=== PATIENT | female | born 1960 | race Caucasian/White ===

== ENCOUNTER → 2018-03-22 11:25 | Outpatient (CLI) | payer BC, SELFPAY ==
--- NOTE | 2018-03-22 11:50 | RAD_ITS ---
STUDY: X-RAY CHEST REASON FOR EXAM: Female, 57 years old. Left-sided chest pain. TECHNIQUE: Frontal and lateral views of the chest. COMPARISON: 11/03/2017. FINDINGS: The lungs are clear and expanded. There is no demonstrated pleural abnormality. Normal size heart. Normal mediastinum and johnny. Normal visualized pulmonary arteries. Normal visualized aortic arch and descending thoracic aorta. Normal visualized thoracic spine. Normal visualized ribs, clavicles, and shoulders. There is no demonstrated abnormality of the visualized soft tissue structures of the upper abdomen. RAD/Chest PA and Lateral IMPRESSION: Normal x-ray examination of the chest. Electronically Signed: Mohsen Fong MD at 16:47 EDT , Service support ,
[2018-03-22 14:04] LABS: Absolute Lymphocyte Count 1.69 X10^3/ul (0.83-4.51); Absolute Neutrophil Count 3.2 X10^3/uL (2.0-7.7); Basophil# 0.04 X10^3/uL; Basophil% 0.7 % (0-1); Eosinophil# 0.08 X10^3/uL; Eosinophils% 1.5 % (0-5); Hematocrit 43.5 % (37-47); Hemoglobin 14.5 g/dl (12.0-15.0); Lymphocyte # 1.69 X10^3/ul (4.0); Lymphocyte % 31.1 % (19-41); Mean Corp Hgb Conc 33.3 g/gl (32-36); Mean Corpuscular Hgb 31.1 pg (27.0-32.0); Mean Corpuscular Volume 93.3 fL (81-99); Mean Platelet Vol. 10.6 fl (6.2-12.0); Monocyte# 0.41 X10^3/uL; Monocyte% 7.6 % (0-10); Neutrophil % 58.9 % (47-70); Platelet Count 270 K/mm3 (150-450); RBC Distribution Width CV 13.6 % (11.6-14.6); Red Blood Count 4.66 M/mm3 (4.2-5.4); White Blood Count 5.4 K/mm3 (4.4-11.0)
[2018-03-22 14:07] LABS: Erythrocyte Sedimentation Rate 9 mm/hr (0-30)
[2018-03-22 14:08] LABS: POSITIVE COUNT NO; POSITIVE DIFFERENTIAL NO; POSITIVE MORPHOLOGY NO
[2018-03-22 14:20] LABS: ALB/GLOB Ratio 1.2 RATIO (0.9-2.4); AST(SGOT) 14 U/L (15-37); Alanine Aminotransfer ALT/SGPT 18 U/L (13-56); Albumin, Serum 3.7 g/dL (3.2-5.0); Alkaline Phosphatase 70 U/L (45-117); Anion Gap 7 (5-15); BUN 13 mg/dL (7-18); BUN/Creat Ratio 20.9 RATIO (10-20); Calcium,Total 8.5 mg/dL (8.5-10.1); Chloride 107 mmol/L (98-107); Creatinine, Serum 0.62 mg/dL (0.55-1.02); EST Glomerular Filtration Rate 105 mL/min (>60); Est Glom Filt Rate - Afr Amer 127 mL/min (>60); Globulin 3.2 g/dL (2.2-4.2); Glucose 79 mg/dL (74-106); Protein, Total 6.9 g/dL (6.4-8.2); Sodium Level 141 mmol/L (136-145); Thyroid Stim Hormone (TSH) 0.95 uIU/mL (0.358-3.74)
== END ==
PROVIDERS: Family Provider Family Medicine; PCP Family Medicine; Visit Provider Family Medicine
DX: N95.9 Unspecified menopausal and perimenopausal disorder (principal); M54.6 Pain in thoracic spine
CPT/HCPCS: 36415; 71046; 80053; 84439; 84443; 85025; 85652

== ENCOUNTER → 2018-08-12 12:41 | Outpatient (CLI) | payer BC, SELFPAY ==
[2018-08-12 14:35] LABS: Absolute Lymphocyte Count 1.46 X10^3/ul (0.83-4.51); Absolute Neutrophil Count 4.3 X10^3/uL (2.0-7.7); Basophil# 0.03 X10^3/uL; Basophil% 0.5 % (0-1); Eosinophil# 0.07 X10^3/uL; Eosinophils% 1.1 % (0-5); Hematocrit 45.6 % (37-47); Hemoglobin 14.9 g/dl (12.0-15.0); Lymphocyte # 1.46 X10^3/ul (4.0); Lymphocyte % 23.1 % (19-41); Mean Corp Hgb Conc 32.7 g/gl (32-36); Mean Corpuscular Hgb 30.8 pg (27.0-32.0); Mean Corpuscular Volume 94.4 fL (81-99); Mean Platelet Vol. 10.2 fl (6.2-12.0); Monocyte# 0.44 X10^3/uL; Neutrophil % 68.1 % (47-70); Platelet Count 264 K/mm3 (150-450); RBC Distribution Width CV 13.6 % (11.6-14.6); RBC Distribution Width SD 46.8 fl (35.1-43.9); Red Blood Count 4.83 M/mm3 (4.2-5.4); White Blood Count 6.3 K/mm3 (4.4-11.0)
[2018-08-12 14:38] LABS: POSITIVE COUNT NO; POSITIVE DIFFERENTIAL NO; POSITIVE MORPHOLOGY NO
[2018-08-12 14:44] LABS: ALB/GLOB Ratio 1.1 RATIO (0.9-2.4); AST(SGOT) 19 U/L (15-37); Alanine Aminotransfer ALT/SGPT 20 U/L (13-56); Albumin, Serum 3.7 g/dL (3.2-5.0); Alkaline Phosphatase 62 U/L (45-117); Anion Gap 8 (5-15); BUN 15 mg/dL (7-18); CRP < 2.90 mg/L (0.0-3.0); Calcium,Total 9.5 mg/dL (8.5-10.1); Chloride 107 mmol/L (98-107); Creatinine, Serum 0.79 mg/dL (0.55-1.02); EST Glomerular Filtration Rate 80 mL/min (>60); Est Glom Filt Rate - Afr Amer 96 mL/min (>60); Globulin 3.5 g/dL (2.2-4.2); Glucose 92 mg/dL (74-106); Protein, Total 7.2 g/dL (6.4-8.2); Sodium Level 143 mmol/L (136-145)
== END ==
PROVIDERS: Family Provider Family Medicine; PCP Family Medicine; Visit Provider Family Medicine
DX: L30.0 Nummular dermatitis (principal)
CPT/HCPCS: 36415; 80053; 85025; 86140

== ENCOUNTER 2018-10-16 16:45 | Emergency (ER) | payer BC, SELFPAY ==
[2018-10-16 16:46] VITALS: BP 137/73; PULSE 83; RESP 16; TEMP 36.6; O2SAT 99; BMI 21.5
--- NOTE | 2018-10-16 16:54 | US_ITS ---
STUDY: ABDOMINAL ULTRASOUND REASON FOR EXAM: Female, 58 years old. Abdominal pain TECHNIQUE: Transabdominal ultrasound was performed with real-time and static romano scale imaging. TECHNICAL QUALITY: Adequate. COMPARISON: None. FINDINGS: Liver: The liver measures 13.6 cm. There is normal echogenicity of the liver. The bile ducts are within normal limits. There is hepatic color flow. The direction of portal flow is hepatopetal. There is a 1 cm cyst in the left lobe of the liver. The liver is otherwise unremarkable. Gallbladder: Normal distended gallbladder. The gallbladder wall measures 3 mm. There is a negative sonographic Ledezma's sign. There is no pericholecystic fluid. There are no gallstones. Common Bile Duct (C.B.D.): The common bile duct measures 5 mm. Pancreas: Normal size of the head, body and tail of the pancreas. There is normal echogenicity of the pancreas. There is no demonstrated pancreatic mass or cyst. Spleen: Normal size of the spleen. The spleen measures 8.4 cm. Right Kidney: Normal size of the right kidney. The right kidney measures 9.4 cm. Normal renal cortex. There is no demonstrated renal mass or cyst. There is no right hydronephrosis. Left Kidney: Normal size of the left kidney. The left kidney measures 9.4 cm. Normal renal cortex. There is no demonstrated renal mass or cyst. There is no left hydronephrosis. Aorta: The aorta is normal in caliber. I.V.C.: The IVC is patent. There is no ascites. US/Abdomen Complete IMPRESSION: Simple cyst in the liver. Otherwise, unremarkable abdominal ultrasound. Electronically Signed: Meet Paige, at 19:12 EST Tel , Service support ,
--- NOTE | 2018-10-16 16:57 | ED.DCSUM_ITS ---
- ER Visit Summary Date of Service: 10/16/18 Chief Complaint: Left upper quadrant pain and swelling History of Present Illness: The patient is a 58 F presents concerning worsening left upper quadrant pain and swelling for the past week. Denies any nausea or vomiting or diarrhea. Normal bowel movement today. No trauma. No recent illness. No previous similar symptoms in the past. No chest pains or shortness of breath. No cough. No fever, chills, sweats. History of tobacco. Denies past medical history. Denies surgical history. Denies any daily medications. No urinary symptoms. Physical Examination: General: Alert and oriented ?3, no acute distress HEENT: Normocephalic, atraumatic. Moist mucosa membranes Neck: supple, nontender. Cardiovascular: Regular rate and rhythm, no murmurs Respiratory: Normal breath sounds, symmetric, no distress Abdomen: Soft, tender palpation under left rib cage. No guarding or rebound. Negative Ledezma's or McBurney's. No pain left lower quadrant. Nondistended Extremities: Nontender, no edema, pulses intact ?4 Neuro: no focal neurological deficits. Test Results: Abdominal ultrasound: Normal spleen. Normal kidneys. Normal gallbladder. Liver cyst noted. Emergency Department Course and Treatment: Patient left upper quadrant tenderness spleen region. No GI symptoms. Concerns for distention. Discussed with patient obtain ultrasound for structural evaluation. Results nor normal spleen and kidneys. Gallbladder is normal. They did note liver cysts. Office if this is not causing her symptoms. Patient reassured. She will monitor symptoms follow-up as an outpatient. Treatment Plan: [] Disposition: Discharge Impression: 1. Left upper quadrant abdominal pain 2. Liver cysts This note was generated with [employer] (Closed) dictation software. It may contain incorrect words, spelling, and punctuation that were not noted in review of the chart prior to signing ED Disposition - Plan for ED Patient: Disposition: Home or Assisted Living Chief Complaint: Abd Pain Diagnosis: Left upper quadrant abdominal pain of unknown etiology, Liver cyst Instructions: ED Abdominal Pain Unkn Cause Referrals: Henry Webb MD [Primary Care Provider] - 3-5 Days Additional Instructions: Abdominal ultrasound normal spleen and kidneys and gallbladder. Liver cyst noted. Monitor symptoms and follow-up with your doctor.
[2018-10-16 19:48] VITALS: BP 103/67; PULSE 70; RESP 16; O2SAT 96
== END 2018-10-16 20:03 | disposition home or self-care (01) ==
PROVIDERS: Emergency Provider Emergency Medicine; Family Provider Family Medicine; PCP Family Medicine
DX: K76.89 Other specified diseases of liver (principal); R10.12 Left upper quadrant pain; Z72.0 Tobacco use
CPT/HCPCS: 76700; 99282

== ENCOUNTER → 2019-01-13 15:22 | Outpatient (CLI) | payer BC, SELFPAY ==
--- NOTE | 2019-01-13 15:26 | CT_ITS ---
STUDY: LOW DOSE CT LUNG CANCER SCREENING REASON FOR EXAM: Female, 58 years old. 2-3 cigarettes per day for 20 years. RADIATION DOSAGE (If Supplied By Facility): CTDIvol = ( 2.01 ) mGy, DLP = ( 60.92 ) mGycm TECHNIQUE: No contrast was administered. Low dose technique was utilized (average mAS-38 and kVp 120). 1.25 mm axial source images with a slice interval of 1.25-mm were reconstructed in lung windows. 2.5 mm axial source images with a slice interval of 2.5-mm were reconstructed in lung windows. 5.0 mm axial source images with a slice interval of 5.0-mm were reconstructed in soft tissue windows. Nodule measured using lung windows on PACS and/or independent workstation with automated measurement of minimum and maximum diameter. Nodule measurement reported as average diameter rounded to the nearest whole number. Growth is defined as an increase ins size of greater than 1.5 mm. COMPARISON: None. NODULES: Total lung nodules (excluding granulomas): 0 Emphysema: There are mild emphysematous changes lungs. There is bilateral pleural thickening. Endobronchial lesion: None Aorta: There is atherosclerotic changes of the thoracic aorta without aneurysm. Coronary arteries: Normal Heart: Normal in size Pulmonary artery: Normal Mediastinal nodes: Other chest and abdominal findings: There are minimal degenerative changes of the thoracic spine. CT/Low Dose CT Lung Screening IMPRESSION: Lung-RADS category 1 - Continue annual screening with LDCT in 12 months. IMPORTANT NOTES FOR USE: ACR Lung-RADS Version 1.0 Assessment Categories Release Date: March 27, 2014 Category: Coded 0-4 bases on nodule(s) with highest degree of suspicion. Negative screen is defined as categories 1 and 2; a positive screen is defined as categories 3 and 4. Category 3 and 4A nodules that are unchanged on interval CT should be coded as category 2, and individuals returned to screening in 12 months. Category 4X: Category 3 or 4 nodules with additional imaging findings that increase the suspicion of lung cancer, such as spiculation, GGN that doubles in size in 1 year, enlarged lymph notes, etc. Category Modifiers: S (significant finding unrelated to lung cancer) and C (prior history of treated lung cancer) may be added to the 0-4 Lung-RADS Electronically Signed: Bandar Montez DO at 18:24 EST Tel [phone], Service support ,
== END ==
PROVIDERS: Family Provider Family Medicine; PCP Family Medicine; Referring Provider Family Medicine; Visit Provider Family Medicine
DX: Z72.0 Tobacco use (principal)
CPT/HCPCS: G0297

== ENCOUNTER → 2019-09-28 09:38 | Outpatient (CLI) | payer BC, SELFPAY ==
[2019-09-28 12:28] LABS: Absolute Neutrophil Count 3.3 X10^3/uL (2.0-7.7); Basophil# 0.04 X10^3/uL; Basophil% 0.8 % (0-1); Eosinophil# 0.08 X10^3/uL; Eosinophils% 1.5 % (0-5); Hematocrit 42.9 % (37-47); Hemoglobin 14.3 g/dL (12.0-15.0); Lymphocyte % 26.9 % (19-41); Mean Corp Hgb Conc 33.3 g/dL (32-36); Mean Corpuscular Hgb 31.4 pg (27.0-32.0); Mean Corpuscular Volume 94.1 fL (81-99); Mean Platelet Vol. 9.9 fl (6.2-12.0); Monocyte# 0.38 X10^3/uL; Monocyte% 7.3 % (0-10); NRBC Flagged by Analyzer 0 % (0-5); Neutrophil % 63.3 % (47-70); Platelet Count 253 K/mm3 (150-450); RBC Distribution Width CV 13.2 % (11.6-14.6); RBC Distribution Width SD 45.6 fl (35.1-43.9); Red Blood Count 4.56 M/mm3 (4.2-5.4); White Blood Count 5.2 K/mm3 (4.4-11.0)
[2019-09-28 13:02] LABS: ALB/GLOB Ratio 1.2 RATIO (0.9-2.4); AST(SGOT) 13 U/L (15-37); Alanine Aminotransfer ALT/SGPT 17 U/L (13-56); Albumin, Serum 3.8 g/dL (3.2-5.0); Alkaline Phosphatase 70 U/L (45-117); Anion Gap 6 (5-15); BUN 11 mg/dL (7-18); BUN/Creat Ratio 17.9 RATIO (10-20); Calcium,Total 9.1 mg/dL (8.5-10.1); Chloride 107 mmol/L (98-107); Creatinine, Serum 0.62 mg/dL (0.55-1.02); EST Glomerular Filtration Rate 105 mL/min (>60); Est Glom Filt Rate - Afr Amer 128 mL/min (>60); Globulin 3.2 g/dL (2.2-4.2); Glucose 79 mg/dL (74-106); Potassium 3.8 mmol/L (3.5-5.1); Sodium Level 140 mmol/L (136-145)
[2019-09-29 08:09] LABS: Immunoglobulin A 196 mg/dL (87-352); Immunoglobulin G 901 mg/dL (700-1600)
[2019-09-29 09:37] LABS: Immunoglobulin M 73 mg/dL (26-217)
[2019-09-30 12:07] LABS: Anti-Centromere B Ab <0.2 AI (0.0-0.9); Anti-Chromatin <0.2 AI (0.0-0.9); Anti-Jo <0.2 AI (0.0-0.9); Anti-Scleroderma-70 AB <0.2 AI (0.0-0.9); RNP Ab <0.2 AI (0.0-0.9); SJOGREN'S Anti-SS-A test < 0.2 AI (0.0-0.9); SJOGREN'S Anti-SS-B test < 0.2 AI (0.0-0.9); Smith Ab <0.2 AI (0.0-0.9)
[2019-09-30 12:41] LABS: Anti-dsDNA Ab <1 IU/mL (0-9)
[2019-10-06 03:07] LABS: Immunoglobulin E 22 IU/mL (6-495)
== END ==
PROVIDERS: Family Provider Family Medicine; PCP Family Medicine; Referring Provider Family Medicine; Visit Provider Family Medicine
DX: R68.2 Dry mouth, unspecified (principal)
CPT/HCPCS: 36415; 80053; 82784; 82785; 85025; 86225; 86235

== ENCOUNTER → 2019-10-10 10:09 | Outpatient (CLI) | payer BC, SELFPAY ==
--- NOTE | 2019-10-10 10:12 | US_ITS ---
STUDY: ABDOMINAL ULTRASOUND - RIGHT UPPER QUADRANT REASON FOR VISIT: Female, 59 years old elevated liver enzymes. TECHNIQUE: Ultrasound evaluation of the right upper quadrant was performed with real-time and static romano-scale imaging. TECHNICAL QUALITY: Adequate. COMPARISON: Comparison is made with prior study dated October 16, 2018. FINDINGS: Liver: The liver measures 13.5 cm. There is normal echogenicity of the liver. The bile ducts are within normal limits. There is hepatic color flow. The direction of portal flow is hepatopetal. There is a 1.1 cm x 0.9 centimeter x 0.7 cm cyst in the left lobe of the liver. This is unchanged. Gallbladder: Normal distended gallbladder. The gallbladder wall measures 2.7 mm. There is a negative sonographic Ledezma's sign. There is no pericholecystic fluid. There are no gallstones. Common Bile Duct (C.B.D.): The common bile duct measures 4.2 mm. Pancreas: Normal size of the head, body and tail of the pancreas. There is normal echogenicity of the pancreas. There is no demonstrated pancreatic mass or cyst. Right Kidney: Normal size of the right kidney. The right kidney measures 9.4 cm x 4.3 cm x 4.4 cm. Normal renal cortex. The right cortex measures 1.6 cm. There is no demonstrated renal mass or cyst. There is no right hydronephrosis. US/Abdomen Limited IMPRESSION: Stable examination. 1.1 cm x 0.9 cm x 0.7 cm left hepatic cyst. Electronically Signed: Chris Olivera, at 13:55 EST , Service support ,
== END ==
PROVIDERS: Family Provider Family Medicine; PCP Family Medicine; Referring Provider Family Medicine; Visit Provider Family Medicine
DX: R74.8 Abnormal levels of other serum enzymes (principal)
CPT/HCPCS: 76705

== ENCOUNTER → 2019-12-30 09:56 | Outpatient (CLI) | payer BC, SELFPAY ==
[2019-12-30 12:32] LABS: Erythrocyte Sedimentation Rate 11 mm/hr (0-30)
[2019-12-30 12:35] LABS: Absolute Lymphocyte Count 1.26 X10^3/uL (0.83-4.51); Absolute Neutrophil Count 4.2 X10^3/uL (2.0-7.7); Basophil# 0.03 X10^3/uL; Basophil% 0.5 % (0-1); Eosinophils% 1.7 % (0-5); Hematocrit 44.5 % (37-47); Hemoglobin 14.6 g/dL (12.0-15.0); Lymphocyte # 1.26 X10^3/ul (4.0); Mean Corp Hgb Conc 32.8 g/dL (32-36); Mean Corpuscular Hgb 31.3 pg (27.0-32.0); Mean Corpuscular Volume 95.5 fL (81-99); Monocyte# 0.44 X10^3/uL; Monocyte% 7.3 % (0-10); NRBC Flagged by Analyzer 0 % (0-5); Neutrophil # 4.15 X10^3/uL (2.7-7.7); Platelet Count 266 K/mm3 (150-450); RBC Distribution Width CV 13.8 % (11.6-14.6); RBC Distribution Width SD 48.2 fl (35.1-43.9); Red Blood Count 4.66 M/mm3 (4.2-5.4)
[2019-12-30 13:01] LABS: BUN 15 mg/dL (7-18); Creatinine, Serum 1.04 mg/dL (0.55-1.02); EST Glomerular Filtration Rate 58 mL/min (>60); Glucose 79 mg/dL (74-106)
[2019-12-30 13:02] LABS: AST(SGOT) 12 U/L (15-37); Alanine Aminotransfer ALT/SGPT 22 U/L (13-56); Albumin, Serum 3.5 g/dL (3.2-5.0); Alkaline Phosphatase 64 U/L (45-117); Anion Gap 5 (5-15); BUN/Creat Ratio 14.4 RATIO (10-20); CRP < 2.90 mg/L (0.0-3.0); Calcium,Total 9.3 mg/dL (8.5-10.1); Chloride 109 mmol/L (98-107); Est Glom Filt Rate - Afr Amer 70 mL/min (>60); Globulin 3.4 g/dL (2.2-4.2); Lipase 90 U/L (73-393); Protein, Total 6.9 g/dL (6.4-8.2); Sodium Level 141 mmol/L (136-145)
== END ==
PROVIDERS: PCP Family Medicine; Referring Provider Family Medicine; Visit Provider Family Medicine
DX: R10.9 Unspecified abdominal pain (principal)
CPT/HCPCS: 36415; 80053; 83690; 85025; 85652; 86140

== ENCOUNTER → 2020-01-06 13:35 | Outpatient (CLI) | payer BC, SELFPAY ==
--- NOTE | 2020-01-06 13:37 | CT_ITS ---
STUDY: CT ABDOMEN AND PELVIS WITHOUT CONTRAST REASON FOR EXAM: Female, 59 years old. Left flank and upper quadrant pain RADIATION DOSAGE (If Supplied By Facility): CTDIvol = ( 6.06 ) mGy, DLP = ( 282.94 ) mGycm TECHNIQUE: Transaxial images were obtained from the dome of the diaphragm to the symphysis pubis without oral contrast, and without intravenous contrast. Sagittal and coronal images were reconstructed. Individualized dose optimization techniques were used for this CT. COMPARISON: 06/20/2010 FINDINGS: The visualized lung bases are unremarkable. The visualized portions of the heart are within normal limits. There is unremarkable aside from a simple 1 cm cyst in the left lobe. Normal gallbladder and extrahepatic biliary system. Normal spleen. Normal pancreas. Normal bilateral adrenal glands. Normal right kidney. Normal left kidney. Normal visualized stomach. Normal small intestine. Retained stool noted in the colon. The appendix is visualized and appears normal. And a specimen coronal recon image 45. Normal abdominal aorta. Normal inferior vena cava. Normal retroperitoneum. Normal urinary bladder. Uterus is still present, the endometrium cannot be accurately evaluated with CT. Clips noted in the pelvis from previous tubal ligation Normal abdominal wall. There are diffuse degenerative changes of the visualized lumbar spine. CT/Abdomen/Pelvis without Cont IMPRESSION: No suspicious solid organ abnormality, specifically, no obstructive uropathy No CT evidence of acute inflammatory process, normal appendix visualized Retained stool throughout the colon Electronically Signed: Lex Lynch MD at 14:55 EST , Service support ,
== END ==
PROVIDERS: PCP Family Medicine; Referring Provider Family Medicine; Visit Provider Family Medicine
DX: R10.9 Unspecified abdominal pain (principal)
CPT/HCPCS: 74176

== ENCOUNTER → 2020-02-23 11:54 | Outpatient (CLI) | payer BC, SELFPAY ==
[2020-02-23 15:25] LABS: Erythrocyte Sedimentation Rate 4 mm/hr (0-30)
[2020-02-23 15:26] LABS: Absolute Neutrophil Count 8.6 X10^3/uL (2.0-7.7); Basophil# 0.04 X10^3/uL; Basophil% 0.4 % (0-1); Eosinophil# 0.07 X10^3/uL; Eosinophils% 0.6 % (0-5); Hematocrit 45.4 % (37-47); Lymphocyte % 12.8 % (19-41); Mean Corpuscular Hgb 31.3 pg (27.0-32.0); Mean Corpuscular Volume 94.8 fL (81-99); Mean Platelet Vol. 10.2 fl (6.2-12.0); Monocyte# 0.77 X10^3/uL; Monocyte% 7.1 % (0-10); NRBC Flagged by Analyzer 0 % (0-5); Neutrophil # 8.58 X10^3/uL (2.7-7.7); Neutrophil % 78.7 % (47-70); Platelet Count 256 K/mm3 (150-450); RBC Distribution Width CV 13.1 % (11.6-14.6); RBC Distribution Width SD 46.2 fl (35.1-43.9); Red Blood Count 4.79 M/mm3 (4.2-5.4); White Blood Count 10.9 K/mm3 (4.4-11.0)
[2020-02-23 15:36] LABS: ALB/GLOB Ratio 1.1 RATIO (0.9-2.4); AST(SGOT) 17 U/L (15-37); Alanine Aminotransfer ALT/SGPT 21 U/L (13-56); Albumin, Serum 3.9 g/dL (3.2-5.0); Alkaline Phosphatase 70 U/L (45-117); Anion Gap 3 (5-15); BUN 10 mg/dL (7-18); BUN/Creat Ratio 14.6 RATIO (10-20); CRP 7.43 mg/L (0.0-3.0); Calcium,Total 9.1 mg/dL (8.5-10.1); Chloride 105 mmol/L (98-107); Creatinine, Serum 0.68 mg/dL (0.55-1.02); EST Glomerular Filtration Rate 93 mL/min (>60); Est Glom Filt Rate - Afr Amer 113 mL/min (>60); Globulin 3.5 g/dL (2.2-4.2); Glucose 81 mg/dL (74-106); Potassium 3.6 mmol/L (3.5-5.1); Protein, Total 7.4 g/dL (6.4-8.2); Sodium Level 139 mmol/L (136-145)
== END ==
PROVIDERS: PCP Family Medicine; Referring Provider Family Medicine; Visit Provider Family Medicine
DX: R10.31 Right lower quadrant pain (principal)
CPT/HCPCS: 36415; 80053; 85025; 85652; 86140

== ENCOUNTER 2020-02-23 17:54 | Observation (INO) | payer BC, SELFPAY ==
[2020-02-23] VITALS (13 sets, daily range): BP systolic 106–125; BP diastolic 50–86; PULSE 67–86; RESP 16–18; TEMP 36.5–37.7; O2SAT 94–100; BMI 21.2
--- NOTE | 2020-02-23 12:22 | CT_ITS ---
STUDY: CT ABDOMEN AND PELVIS WITHOUT CONTRAST REASON FOR EXAM: Female, 59 years old. RLQ PAIN -SUDDEN ONSET LAST NIGHT RADIATION DOSAGE (If Supplied By Facility): CTDIvol = ( 6.05 ) mGy, DLP = ( 281.24 ) mGycm TECHNIQUE: Transaxial images were obtained from the dome of the diaphragm to the symphysis pubis without oral contrast, and without intravenous contrast. Sagittal and coronal images were reconstructed. Individualized dose optimization techniques were used for this CT. COMPARISON: CT of abdomen and pelvis dated January 06, 2020 FINDINGS: The appendix is abnormally dilated and fluid distended and surrounded by periappendiceal inflammatory stranding compatible with acute appendicitis. The lumen of the appendix is abnormally distended to 1.08 cm. No stone is seen in the appendix. No demonstrated perforation. Normal visualized stomach. Normal small intestine. Normal colon. No bowel dilatation or obstruction. No free air or free fluid. The visualized lung bases are unremarkable. A small simple cyst is present in the lateral aspect of the left lobe of the liver. The liver is otherwise unremarkable. No intrahepatic biliary duct dilatation or liver mass. Normal gallbladder and extrahepatic biliary system. A small calcification is seen in the spleen. Normal pancreas. Normal bilateral adrenal glands. Normal right kidney. Normal left kidney. No hydronephrosis or renal masses. No large stones. Normal abdominal aorta. Normal inferior vena cava. Normal retroperitoneum. Normal urinary bladder. Grossly unremarkable uterus. Bilateral adnexal clips are present. Normal abdominal wall. There are minor degenerative changes of the visualized lumbar spine. CT/Abdomen/Pelvis without Cont IMPRESSION: 1. Acute appendicitis without rupture. N.B. : The above information has been verbally conveyed by Bruno Chris MD to Dr Gene MD, on 02/23/2020 13:39:04 (ET). Electronically Signed: Bruno Chris MD at 13:40 EDT , Service support ,
--- NOTE | 2020-02-23 14:50 | APP_PTH ---
PATIENT: SAMUEL URRUTIA LOC: MS3 U#:[id number] AGE/SX: 59/F ROOM: MS308 RE02/23/[address]: Dr. Franklin Landry MD : 1960 BED: 1 DIS: 02/24/2020 SPEC #: [id number] RECD: 02/24/20 13:10 STATUS: ROXANE REWisam #: [id number] REJI: 02/23/20 14:[address]: Franklin Landry DEPT: SURGICAL PATHOLOGY RECD BY: Luciano Escobar ENTERED: 02/24/20 13:26 SP TYPE: APPENDIX OTHR DR: Dr. Henry Webb MD Tissues: Appendix, NOS Procedures: Surgery Specimen Level III HEADER OPERATION: Laparoscopic appendectomy PRE-OP DIAGNOSIS: Acute appendicitis TISSUE SUBMITTED: Appendix MICROSCOPIC DIAGNOSIS Appendix, appendectomy: Acute appendicitis and periappendicitis. SJ:ashley 02/27/20 MICROSCOPIC DESCRIPTION Slides are reviewed. GROSS DESCRIPTION Received is one container labeled with the patient's name and designated appendix. The specimen consists of an appendix measuring 5 cm in length and up to 0.6 cm in diameter. The serosa is congested. No obvious perforation is identified. The lumen is filled with fecal material. No fecalith is identified. The appendix is serially sectioned and totally submitted in two cassettes. / AM:ashley 02/24/20 TC:2 CPT: 02302
[2020-02-23] MEDS: 0.9% Normal Saline 1,000 ML 100 ML IV (16:08)
--- NOTE | 2020-02-23 16:30 | HP.PCM_ITS ---
Problem List (1) Acute appendicitis Status: Acute Qualifiers: Acute appendicitis type: unspecified acute appendicitis type Qualified Code(s): K35.80 - Unspecified acute appendicitis History of Present Illness Date of Admission: 02/23/20 The patient is a 59 year old F who started to have right lower quadrant pain yesterday. She reports overnight she had extreme pain with nausea. 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 She is not having any fevers or chills. Past Medical History Allergies No Known Allergies Allergy (Verified 10/16/18 16:47) Home Medications: Ambulatory Orders Medication Instructions Recorded NK 10/16/18 Surgical History: no surgical history Smoking Status: Current every day smoker Tobacco Use: Cigarettes - *Family History Maternal History Items: No pertinent history Review of Systems Constitutional: Denies: Anorexia, Fever Eyes: Denies: Blurred vision HEENT: Denies: Difficulty Swallowing Cardiovascular: Denies: Chest Pain Respiratory: Denies: Cough Gastrointestinal: Reports: Abdominal Pain, Nausea. Denies: Constipation, Diarrhea, Hematemesis, Hematochezia, Vomiting Genitourinary: Denies: Dysuria Skin: Denies: Jaundice Hematologic/ Lymphatic: Denies: Anemia VTE Information - Inpt Only VTE Present on Admission: No VTE Mechan Device Prophylaxis: SCD's Patient Problems: Active and Suspected Problems Acute appendicitis (Acute) - Physical Exam Vitals/I&O's: Vital Signs Temp Pulse Resp BP Pulse Ox 99.8 F H 86 16 113/55 L 100 02/23/20 15:10 02/23/20 15:10 02/23/20 15:10 02/23/20 15:10 02/23/20 15:10 Oxygen Delivery Method Room Air Weight: 116 lb Body Mass Index (BMI) 21.2 General: Alert, Oriented x3 Neck: Supple, No JVD Lungs: Normal air movement Cardiovascular: Regular rate, Regular Rhythm, Normal S1 Abdomen: Soft, Non-Distended, Tender - RLQ Skin: No rashes Musculoskeletal: No Muscle Wasting Neurological: Cranial nerves II-XII grossly intact Psych/Mental Status: Normal Affect Current Medications Sodium Chloride () 1,000 mls @ 100 mls/hr IV .Q10H DEONTE Last Admin: 02/23/20 16:08 Dose: 100 mls/hr Documented by: Assessment/Plan All Active Problems Acute appendicitis (Acute) 59-year-old female with acute appendicitis 1. Patient had right lower quadrant pain which started last night with nausea. She does have a normal white count at the very upper limit of normal with a left shift. Patient CT scan shows inflammation of the right lower quadrant and a fluid-filled dilated appendix. I discussed this with the patient and recommended laparoscopic appendectomy. I discussed laparoscopic appendectomy with the patient in detail. I discussed the risks include but not limited to bleeding, infection, injury to surrounding organs such as the colon, bowel, ureter or bladder. Patient understands the risks and is well to proceed. Franklin Landry MD Pager: [facility] [address] [place] [address], [address] [place] [address] Office:
[2020-02-23] MEDS: Bupiv/Epi 0.25% 30 ML Vial (17:43)
--- NOTE | 2020-02-23 17:53 | OP.PCM_ITS ---
Problem List (1) Acute appendicitis Status: Acute Qualifiers: Acute appendicitis type: unspecified acute appendicitis type Qualified Code(s): K35.80 - Unspecified acute appendicitis Report of Operation Date of Procedure: 02/23/20 Pre-Operative Diagnosis: Acute appendicitis Post-Operative Diagnosis: Same Surgery/Procedure Performed:: Laparoscopic appendectomy Specimen's removed: Appendix Description of Procedure: The patient was brought into the operating room and general anesthesia was induced. The left arm was tucked and the abdomen was prepped and draped in usual sterile fashion. A small midline incision was made superior to the umbilicus and deepened to the level of the fascia. The fascia was elevated and incised. The peritoneum was also elevated and incised. A finger sweep was performed and a balloon trocar was placed into the abdomen and inflated. The abdomen was insufflated to 15 mmHg and the camera was inserted and the abdomen was inspected for any injuries upon entering the abdomen. There were none. The patient was placed in Trendelenburg position and a 5 mm ports placed in the left lower quadrant and suprapubic areas under direct visualization. Next using atraumatic bowel graspers the appendix was identified. The appendix was grasped and elevated and a harmonic scalpel was used to take down the mesoappendix. A stapler was used to come across the base of the appendix. The appendix was then placed in Endo Catch bag and removed through the umbilical incision. The staple line was inspected and found to be hemostatic and intact. The 2 5 mm ports are removed under direct visualization. The balloon trocar was deflated and removed and all the air was removed from the abdomen. The umbilical incision fascia was closed with an 0 Vicryl [id number] suture. The incisions were then irrigated with saline and dried. Local anesthetic was injected into the inc ision sites. The skin incisions were then closed with interrupted 4-0 Monocryl suture and Steri-Strips. Bandages were applied and the patient was awoken and taken to PACU in stable condition. Patient tolerated the procedure well. - Admit VTE Documentation VTE Mechan Device Prophylaxis: SCD's
[2020-02-23] MEDS: 0.9% Normal Saline 1,000 ML 50 ML IV (19:03)
[2020-02-23] MEDS: Ondansetron 4 MG/2 ML Vial IV (20:05)
[2020-02-23] MEDS: Acetaminophen 325 MG Tablet 650 MG PO (20:48)
[2020-02-24] MEDS: Ketorolac 15 MG/ML Vial IV (02:34)
[2020-02-24 02:38] VITALS: BP 128/67; PULSE 70; RESP 16; TEMP 37.1; O2SAT 96
[2020-02-24 06:42] VITALS: BP 114/64; PULSE 82; RESP 16; TEMP 37.2; O2SAT 98
--- NOTE | 2020-02-24 07:47 | DCINST_ITS ---
Discharge Diet: Light diet - advance as tolerated Discharge Activity: May Not Drive - for 3-5 days or while taking narcotic pain meds., May Shower Lifting Restrictions: 20 lbs for 2 weeks Call your doctor if your incision/area has: Continuous Slow Oozing, Sudden Increased Bleeding, Increased Pain/ Swelling, Increased Redness, Foul Smelling Discharge Call your doctor if you observe: Fever of 101 or Higher Suture Line Care: Avoid Pulling/Pushing, Avoid Pinching/Bending Additional Dressing/Incision Instructions:: Keep dressing clean and dry. Change or remove dressing in 2 days. Leave steri strips for 1 week. May protect with a gauze bandaid. Medications to take at Discharge Acetaminophen [Tylenol Tablet] 650 mg PO Q4H PRN PRN tablet 02/24/20 Allergies/Adverse Reactions: Allergies No Known Allergies Allergy (Verified 10/16/18 16:47) Primary Care Physician: Henry Webb MD [Primary Care Provider] - Test Results: Test results from this visit will be discussed in further detail at your follow- up appointment, if applicable. Please Follow Up With: Franklin Landry MD When: Please call to schedule 2 week follow up appointment. [phone]
--- NOTE | 2020-02-24 07:48 | PCM.WORK.EX ---
Work/School Excuse Work/School Excuse for:: Patient Please excuse this person from:: Work From: 02/23/20 through: 02/26/20 Restrictions: Light Duty - Patient may return to light duty 02/26. No lifting over 20 lbs. May return to normal duty 03/09
[2020-02-24 08:18] VITALS: BP 101/63; PULSE 64; RESP 18; TEMP 36.8; O2SAT 100
[2020-02-24 09:49] VITALS: BP 103/74; PULSE 68; RESP 18; TEMP 36.8; O2SAT 100
== END 2020-02-24 10:08 | disposition home or self-care (01) ==
LOC: SDC 18:06 → MS3 18:06
PROVIDERS: Admitting Provider Surgery; PCP Family Medicine; Referring Provider Family Medicine; Visit Provider Surgery
PROC: 0DTJ4ZZ Resection of Appendix, Percutaneous Endoscopic Approach (ICD-10-PCS; CPT 44970; principal; 2020-02-23 14:30)
DX: K35.80 Unspecified acute appendicitis (principal); F17.210 Nicotine dependence, cigarettes, uncomplicated
CPT/HCPCS: 44970; 74176; 88304; 96374; 96375; 99218; 99251; 99406; J7030; J7120; C1760; G0378; G0379; G0463; J2405

== ENCOUNTER 2020-12-07 08:57 | Emergency (ER) | payer BC, SELFPAY ==
[2020-02-23 18:43] VITALS: BMI 21.2
[2020-12-07 08:57] VITALS: BP 118/60
[2020-12-07 08:58] VITALS: BP 118/60; PULSE 70; RESP 18; TEMP 36.5; O2SAT 98; BMI 23.1
[2020-12-07 09:15] VITALS: O2SAT 100
--- NOTE | 2020-12-07 09:15 | EKG12_ITS ---
Test Reason : CP Blood Pressure : / mmHG Vent. Rate : 066 BPM Atrial Rate : 066 BPM P-R Int : 142 ms QRS Dur : 068 ms QT Int : 412 ms P-R-T Axes : -16 055 064 degrees QTc Int : 431 ms Normal sinus rhythm Normal ECG Confirmed by BRIDGETTE BARRY, HONEY ([id number]), scientific editor LAKESHA BRODERICK ([id number]) on 12/10/2020 9:38:55 AM Referred By: Confirmed By:HONEY ANGELES MD
--- NOTE | 2020-12-07 09:19 | ED.VIS.GEN ---
History of Present Illness Chief Complaint: Chest Pain Informant: Patient Onset: Weeks Timing: Intermittent Current Severity: Mild Maximum Severity: Mild Narrative: Patient presents secondary to episode of dizziness, cold sweats, and nausea. She had a small emesis. This incident occurred this morning. For the past 2 weeks patient has had intermittent sensation of pinching in her left mid chest. She states she did not have chest pain with her dizzy episode this morning. Pain does not seem to be associated with exertion. She denies shortness of breath. No significant personal history of cardiac or venous thromboembolism disease. - Past Medical History (1) Anxiety Status: Chronic Past Medical History - Allergies and Home Meds Allergies/Adverse Reactions: Allergies No Known Allergies Allergy (Verified 12/07/20 08:58) Primary Care Physician: Henry Webb MD [Primary Care Provider] - Prior records reviewed: Yes Surgical History: no surgical history Lives: Spouse/ Significant Other Smoking Status: Current every day smoker - Family History Maternal Family History: Reports: No pertinent history Review of Systems General: Denies: Chills, Fever Eyes: Denies: Visual changes - bilaterally ENT: Denies: Bilateral ear pain Cardiovascular: Reports: Chest pain. Denies: Palpitations, Heart racing Respiratory: Denies: Dyspnea, Cough Gastrointestinal: Reports: Nausea, Vomiting. Denies: Abdominal pain, Diarrhea Musculoskeletal: Denies: Extremity Pain Neurological: Denies: Headache Hematologic: Denies: Easy bruising, Easy bleeding Allergy: Denies: Uticaria Physical Exam Vital Signs/Narrative: Vital Signs Temp Pulse Resp BP Pulse Ox 12/07/20 09:15 100 12/07/20 08:58 97.7 F L 70 18 118/60 98 12/07/20 08:57 118/60 Inital Vital Signs reviewed: Yes General: Well nourished, Well developed Head: Normocephalic ENT: Moist mucous membranes Neck: Supple Cardiovascular: Regular rate, Regular rhythm Respiratory: No distress, CTA bilaterally, Chest tenderness - Reproducible chest wall tenderness on the left sternal border. Abdomen: Soft, Nontender Back: Nontender Extremities: Nontender Skin: Normal color Neurological: Alert, Oriented x3, Normal Strength, Normal Sensation Psychological: Normal affect Diagnostic/Tx/Re-eval Chest X-Ray - ED: 1 View, Read by ED Physician, Normal, Heart, Lungs, Mediastinum - EKG Initial EKG Interpretation: Sinus Rhythm - Sinus at 66 with no acute ischemia. - Medical Decision Making Patient was given aspirin on arrival. She has no chest pain currently. Patient was observed on windchill administrator throughout her ED stay with no arrhythmias noted. Portable chest x-ray per my interpretation reveals no focal infiltrate or cardiomegaly. Radiologist interpretation is reviewed. Blood work at this time is unremarkable including a negative troponin and D-dimer. My suspicion is that this episode she had this morning was a vasovagal reaction which may not even be related to the intermittent chest pain she has been having. Patient will be given anti-inflammatories as she does have reproducible tenderness over the cartilage joining the ribs and sternum. She is given return instructions. ED Disposition - Plan for ED Patient: Disposition: Home or Assisted Living Diagnosis: Chest wall pain, Vasovagal near syncope Instructions: ED Chest Wall Pain, Costochondritis, ED Near-Fainting- Vagal Reaction Prescriptions: Naproxen [Naprosyn] 500 mg PO BID #14 tab Transmission Status: Pending to [facility] Referrals: Henry Webb MD [Primary Care Provider] - 1 Week if not improving
--- NOTE | 2020-12-07 09:20 | RAD_ITS ---
STUDY: X-RAY CHEST REASON FOR EXAM: Female, 60 years old. Has a pinching sensation to chest that comes and goes over the last two weeks. Small emesis this morning. Dizziness and cold sweat when episode happened this morning. TECHNIQUE: Single AP portable view of the chest. COMPARISON: Comparison is made with prior study dated 03/22/2018. FINDINGS: EKG electrodes are seen. The lungs are clear and expanded. There is no demonstrated pleural abnormality. Normal size heart. Normal mediastinum and johnny. Normal visualized pulmonary arteries. There is atherosclerotic calcification of the aortic arch with tortuosity. Normal visualized thoracic spine. Normal visualized ribs, clavicles, and shoulders. There is no demonstrated abnormality of the visualized soft tissue structures of the upper abdomen. RAD/Chest 1 View (Portable) IMPRESSION: Normal x-ray examination of the chest. Electronically Signed: Chris Olivera, at 9:35 EST , Service support ,
[2020-12-07] MEDS: Aspirin 81 MG TAB.CHEW 324 MG PO (09:21)
[2020-12-07 09:27] LABS: Absolute Lymphocyte Count 1.55 X10^3/uL (0.83-4.51); Absolute Neutrophil Count 4.2 X10^3/uL (2.0-7.7); Basophil# 0.04 X10^3/uL; Basophil% 0.6 % (0-1); Eosinophil# 0.11 X10^3/uL; Eosinophils% 1.7 % (0-5); Hematocrit 44.8 % (37-47); Hemoglobin 14.9 g/dL (12.0-15.0); Lymphocyte # 1.55 X10^3/ul (4.0); Lymphocyte % 24.6 % (19-41); Mean Corp Hgb Conc 33.3 g/dL (32-36); Mean Corpuscular Hgb 31.2 pg (27.0-32.0); Mean Corpuscular Volume 93.9 fL (81-99); Mean Platelet Vol. 9.6 fl (6.2-12.0); Monocyte# 0.38 X10^3/uL; NRBC Flagged by Analyzer 0 % (0-5); Neutrophil % 66.8 % (47-70); Platelet Count 278 K/mm3 (150-450); RBC Distribution Width CV 13.5 % (11.6-14.6); Red Blood Count 4.77 M/mm3 (4.2-5.4); White Blood Count 6.3 K/mm3 (4.4-11.0)
[2020-12-07 09:38] LABS: D-Dimer Quantitative (DVT/PE) <= 0.27 FEU/ug/m (0.27-0.49)
[2020-12-07 09:40] LABS: Anion Gap 3 (5-15); BUN 15 mg/dL (7-18); BUN/Creat Ratio 20.2 RATIO (10-20); Calcium,Total 9.1 mg/dL (8.5-10.1); Chloride 109 mmol/L (98-107); Creatinine, Serum 0.74 mg/dL (0.55-1.02); EST Glomerular Filtration Rate 85 mL/min (>60); Est Glom Filt Rate - Afr Amer 103 mL/min (>60); Estimated Creatinine Clearance 61.01 ml/min; Glucose 90 mg/dL (74-106); Potassium 4.2 mmol/L (3.5-5.1); Sodium Level 142 mmol/L (136-145)
[2020-12-07 09:55] VITALS: BP 103/69; O2SAT 99
== END 2020-12-07 09:55 | disposition home or self-care (01) ==
PROVIDERS: Emergency Provider Emergency Medicine; PCP Family Medicine
DX: R07.89 Other chest pain (principal); R55 Syncope and collapse; F17.200 Nicotine dependence, unspecified, uncomplicated
CPT/HCPCS: 71045; 80048; 84484; 85025; 85379; 93005; 99285; A4216

== ENCOUNTER → 2021-05-16 15:33 | Outpatient (CLI) | payer SELFPAY ==
--- NOTE | 2021-05-16 15:40 | CT_ITS ---
STUDY: LOW DOSE CT LUNG CANCER SCREENING REASON FOR EXAM: Female, 60 years old. Smoker. Half pack a day for 23 years. RADIATION DOSAGE (If Supplied By Facility): CTDIvol = ( 2.01 ) mGy, DLP = ( 57.66 ) mGycm TECHNIQUE: No contrast was administered. Low dose technique was utilized (average mAS-38 and kVp 120). 1.25 mm axial source images with a slice interval of 1.25-mm were reconstructed in lung windows. 2.5 mm axial source images with a slice interval of 2.5-mm were reconstructed in lung windows. 5.0 mm axial source images with a slice interval of 5.0-mm were reconstructed in soft tissue windows. Nodule measured using lung windows on PACS and/or independent workstation with automated measurement of minimum and maximum diameter. Nodule measurement reported as average diameter rounded to the nearest whole number. Growth is defined as an increase ins size of greater than 1.5 mm. COMPARISON: Chest, 12/07/2020. CT of the chest, 01/13/2019. NODULES: Nodule #: 1 Density: Ground glass Lung location: Right upper lobe lobe: 0.8 cm from pleura Location in series: Series Number: 2 Image: 22 Size - D1 x D2 mm: 12 x 13 mm: 18 mm average diameter Margin: Ill-defined Shape: Triangular Calcification: No Fat: No Temporal comparison: Unchanged Total lung nodules (excluding granulomas): 1 Emphysema: Mild emphysematous changes along. Bilateral apical pleural scarring. Endobronchial lesion: None Aorta: Stable atherosclerotic changes of the aorta. Coronary arteries: Normal Heart: Normal in size Pulmonary artery: Normal Mediastinal nodes: None Other chest and abdominal findings: Minimal degenerative changes. CT/Low Dose CT Lung Screening IMPRESSION: Lung-RADS category 2 - Continue annual screening with LDCT in 12 months. IMPORTANT NOTES FOR USE: ACR Lung-RADS Version 1.1 Assessment Categories Release Date: 2018 Category: Coded 0-4 bases on nodule(s) with highest degree of suspicion. Negative screen is defined as categories 1 and 2; a positive screen is defined as categories 3 and 4. Category 3 and 4A nodules that are unchanged on interval CT should be coded as category 2, and individuals returned to screening in 12 months. Category 4X: Category 3 or 4 nodules with additional imaging findings that increase the suspicion of lung cancer, such as spiculation, GGN that doubles in size in 1 year, enlarged lymph notes, etc. Category Modifiers: S (significant finding unrelated to lung cancer) Electronically Signed: Bandar Montez DO at 23:06 EDT Tel [phone], Service support ,
== END ==
PROVIDERS: PCP Family Medicine; Referring Provider Family Medicine; Visit Provider Family Medicine
DX: Z72.0 Tobacco use (principal)
CPT/HCPCS: 71271

== ENCOUNTER → 2021-10-01 16:59 | Outpatient (CLI) | payer BC, SELFPAY | PROVIDERS: PCP Family Medicine; Referring Provider Family Medicine; Visit Provider Family Medicine | DX: K21.9 Gastro-esophageal reflux disease without esophagitis (principal); Z11.52 Encounter for screening for COVID-19 | CPT/HCPCS: 36415 ==

== ENCOUNTER → 2021-10-25 09:12 | Outpatient (CLI) | payer BC, SELFPAY | PROVIDERS: PCP Family Medicine; Visit Provider Family Medicine | DX: K21.9 Gastro-esophageal reflux disease without esophagitis (principal); Z11.52 Encounter for screening for COVID-19 ==

== ENCOUNTER 2022-02-04 12:05 | Day surgery (SDC) | payer BC, SELFPAY ==
--- NOTE | 2022-02-04 | GASB_PTH ---
PATIENT: SAMUEL URRUTIA LOC: [facility] U#:[id number] AGE/SX: 61/F ROOM: RE02/04/[address]: Dr. Darci Wade DO : 1960 BED: DIS: 02/04/2022 SPEC #: [id number] RECD: 02/04/22 14:20 STATUS: ROXANE BLESSING #: [id number] REJI: 02/04/22 00:[address]: Darci Wade DEPT: SURGICAL PATHOLOGY RECD BY: Cristhian Mendoza ENTERED: 02/05/22 10:08 SP TYPE: Gastric Bx OTHR DR: Dr. Henry Webb MD Tissues: A - Gastric mucous membrane B - Esophageal mucous membrane Procedures: Special Stain Group II Surgery Specimen Level IV Alcian Blue/PAS (control) HEADER OPERATION: EGD with biopsies and dilation (MAC) PRE-OP DIAGNOSIS: GERD TISSUE SUBMITTED: A ? Gastric ulcer biopsy, B ? Distal esophagus biopsy MICROSCOPIC DIAGNOSIS A. Gastric ulcer, biopsy: Mild gastritis. See microscopic description and comment. B. Distal esophagus, biopsy: Fragments of gastroesophageal mucosa with focal intestinal metaplasia (goblet cell metaplasia), consistent with Juarez?s esophagus. Moderate chronic inflammation and changes consistent with gastroesophageal reflux disease. Negative for dysplasia. See comment. SJ:rg 02/06/2022 COMMENT A. The results of immunohistochemistry for Helicobacter pylori will be reported separately ([id number]). B. Immunohistochemistry ([id number]) for P53 and Ki-67 will be performed and results will be reported separately. Alcian blue/PAS stain with matched control is used in the evaluation of the specimen. MICROSCOPIC DESCRIPTION Slides are reviewed. A. The specimen shows fragments of gastric mucosa with chronic inflammatory cell infiltrates in the lamina propria consisting of lymphocytes and plasma cells, consistent with mild chronic gastritis. GROSS DESCRIPTION A - Received in fixative is one container labeled with the patient's name and designated gastric ulcer biopsy. The specimen consists of two irregular fragments of light nicholson soft tissue that in aggregate measure 0.8 x 0.4 x 0.1 cm. The specimen is totally submitted in one cassette. B - Received in fixative is one container labeled with the patient's name and designated distal esophagus. The specimen consists of multiple irregular fragments of light nicholson soft tissue that in aggregate measure 1 x 0.5 x 0.1 cm. The specimen is totally submitted in one cassette. / SJ:rg 02/05/2022 TC:3 CPT: 19437 x2, 88878
[2022-02-04 12:37] VITALS: BP 98/53; PULSE 67; RESP 16; TEMP 37; O2SAT 100; BMI 23.8
[2022-02-04] MEDS: Lactated Ringers 1,000 ML 15 ML IV (12:44)
--- NOTE | 2022-02-04 13:30 | IMM_PTH ---
PATIENT: SAMUEL URRUTIA LOC: [facility] U#:[id number] AGE/SX: 61/F ROOM: RE02/04/[address]: Dr. Darci Wade DO : 1960 BED: DIS: 02/04/2022 SPEC #: [id number] RECD: 02/05/22 13:03 STATUS: ROXANE BLESSING #: [id number] REJI: 02/04/22 13:[address]: Darci Wade DEPT: IMMUNOHISTOCHEMISTRY RECD BY: Mary Wilkins ENTERED: 02/05/22 13:04 SP TYPE: IMMUNO OTHR DR: Dr. Henry Webb MD Tissues: A - Stomach, NOS B - Esophagus, NOS Procedures: H Pylori (initial) P53 (initial) KI-67 (add) PHYSICIAN & INSTITUTION [place] [phone] SPECIMEN INFORMATION: Tissue Source: A ? Gastric ulcer, B ? Distal esophagus Clinical Info: GERD Specimen Number: [id number] A & B CPT code: 65287 x2, 05328 METHODOLOGY: Deparaffinized sections of prefer/formalin-fixed tissue or PAP/DQ stained slides are incubated with monoclonal/polyclonal antibodies/oligonucleotide probes. Localization is made via biotin free immunoperoxidase method. Appropriate controls are performed and reacted as expected. Results on target cell population are indicated in the following table: RESULTS: ANTIBODY / CLONE RESULT Block A H Pylori (polyclonal) negative Block B P53 (DO-7) negative Ki-67 (30-9) positive, very low These tests were developed and their performance characteristics determined by [facility]. They may not have been cleared or approved by the U.S. Food and Drug Administration. The FDA has determined that such clearance or approval is not necessary. The above immunohistochemical/dualISH markers are ordered and reviewed by the pathologist. INTERPRETATION: A. Gastric ulcer, biopsy: Negative for Helicobacter pylori organisms. B. Distal esophagus, biopsy: Negative for dysplasia. SJ:ashley 02/06/2022
--- NOTE | 2022-02-04 13:40 | HP.PCM_ITS ---
History and Physical Date of Admission: 02/04/22 61 F who presents to the office today for Evaluation of chronic burping and reflux symptoms. Onset of these symptoms was a couple of months ago and they have gotten better in the last couple of weeks. Reports she started taking apple cider vinegar at night and feels this may have helped. History of family esophageal cancer, sisters also have a lot of difficulty with her esophagus but unknown diagnosis. Underwent emergent appendectomy 02.23.20 for appendicitis. History of anxiety for which she was seen in [facility] ED with dizziness, cold sweats and nausea. Denies history of EGD and colonoscopy. ROS Const Constitutional: No anorexia, body ache, chills, excessive sweating, fatigue, fev er(s), frequent falls, headache(s), decreased energy, malaise, night sweats, snoring, weakness, weight change, sleep problems, abnormal sleep pattern, change in appetite or other ENT ENT: No headache(s), difficulty swallowing, hoarseness or sore throat Resp Respiratory: No snoring Cardio Cardiology: No chest pain at rest or excessive sweating Gastro GI: No abdominal pain, belching, bloating, change in bowel habits, change in stool character, coffee ground emesis, constipation, cramping, diarrhea, heartburn, difficulty swallowing, feeling full early, excessive flatus, incontinent of stools, Vomiting blood/hematemesis, Blood in stool, loose stools, Black,tarry stools, nausea/dyspepsia, pain with swallowing, vomiting or other Musc Musculoskeletal: No joint pain Skin Skin: No yellowing of the eye or itchy eyes Neuro Neurology: No weakness, frequent falls or headache(s) Psych Psychiatric: No abnormal sleep pattern and No change in appetite Endo Endocrine: No excessive sweating, fatigue or weight change Aller/Imm Allergy/Immunologic: No itchy eyes Stas/Lymp Hematologic/Lymphatic: No easy bleeding or easy bruising Exam Const General: cooperative and comfortable Nutritional Appearance: average body habitus and well nourished HENMT Head: normal to inspection Ears: hearing grossly normal bilaterally Nose: external nose normal Face and sinus: normal facial exam Mouth: oral mucosae normal Throat: posterior oropharynx normal Eyes General: appearance normal, both eyes and all related structures Neck Neck: normal visual inspection Chest Chest palpation & inspection: normal inspection of the chest and normal palpation of entire chest wall Resp Effort & Inspection: normal respiratory effort Auscultation: Bilateral: Clear to Auscultation Cardio Palpation: normal PMI Rate: regular rate Rhythm: regular rhythm GI Inspection: normal to inspection Auscultation: normal bowel sounds Percussion: normal to percussion Palpation: no hepatosplenomegaly Skin General: no rashes or lesions noted Neuro General: patient alert Extrem General: normal to inspection Psych Affect: normal affect Quality Reporting Tobacco Screening ([facility] 138) Smoking Status: Current every day smoker Assessment and Plan Assessment and Plan (1) GERD (gastroesophageal reflux disease): Status: Acute Plan - Dr. Bejarano Friend, DO: She has a strong family history of esophageal cancer in her father and her si ster has a hiatal hernia with reflux disease. She should be screened for Juarez's esophagus. She is taking apple cider vinegar which is providing a good offer for her at night. I would recommend that she take a PPI at least once a day in the morning until she has her upper endoscopy and probably stage her. She is also having some abdominal pain on the left upper quadrant would also could be from gastritis. We will evaluate her entire upper GI tract. I had a long talk with her today regarding her smoking and her increase in risk of esophageal cancer. She says she will try to stop smoking. I have re-examined the patient. There are no clinical changes since date of exam.
--- NOTE | 2022-02-04 14:04 | OP.EGD_ITS ---
Patient Name: Carly Carvalho Procedure Date: 02/04/2022 1:35 PM Date of : 1960 Age: 61 Procedure: Upper GI endoscopy Indications: Dysphagia, Heartburn, Suspected esophageal reflux Providers: Darci Wade DO Medicines: General Anesthesia Patient Profile: This is a 61 year old female. Refer to note in patient chart for documentation of history and physical. Patient has symptoms. The symptoms first began October. Complications: No immediate complications. Procedure: Pre-Anesthesia Assessment: - Prior to the procedure, a History and Physical was performed, and patient medications and allergies were reviewed. The risks and benefits of the procedure and the sedation options and risks were discussed with the patient. All questions were answered and informed consent was obtained. Patient identification and proposed procedure were verified by the physician in the pre-procedure area. Mental Status Examination: alert and oriented. Airway Examination: normal oropharyngeal airway and neck mobility. Respiratory Examination: clear to auscultation. CV Examination: normal. Prophylactic Antibiotics: The patient does not require prophylactic antibiotics. Prior Anticoagulants: The patient has taken no previous anticoagulant or antiplatelet agents. ASA Grade Assessment: II - A patient with mild systemic disease. After reviewing the risks and benefits, the patient was deemed in satisfactory condition to undergo the procedure. The anesthesia plan was to use moderate sedation / analgesia (conscious sedation). Immediately prior to administration of medications, the patient was re-assessed for adequacy to receive sedatives. The heart rate, respiratory rate, oxygen saturations, blood pressure, adequacy of pulmonary ventilation, and response to care were monitored throughout the procedure. The physical status of the patient was re-assessed after the procedure. After obtaining informed consent, the endoscope was passed under direct vision. Throughout the procedure, the patient's blood pressure, pulse, and oxygen saturations were monitored continuously. The Endoscope was introduced through the mouth, and advanced to the second part of duodenum. The upper GI endoscopy was accomplished without difficulty. The patient tolerated the procedure well. Moderate Sedation: Moderate (conscious) sedation was administered by the endoscopy nurse and supervised by the endoscopist. The following parameters were monitored: oxygen saturation, heart rate, blood pressure, and response to care. Total physician intraservice time was 15 minutes. Scope In: 1:46:46 PM Scope Out: 1:56:06 PM Total Procedure Duration Time 0 hours 9 minutes 20 seconds Findings: LA Grade B (one or more mucosal breaks greater than 5 mm, not extending between the tops of two mucosal folds) esophagitis with bleeding was found 33 to 38 cm from the incisors. Biopsies were taken with a cold forceps for histology. Verification of patient identification for the specimen was done. Estimated blood loss was minimal. A moderate Schatzki ring was found in the lower third of the esophagus. A guidewire was placed and the scope was withdrawn. Dilation was performed with a Savary dilator with no resistance at 51 Fr. The dilation site was examined following endoscope reinsertion and showed moderate improvement in luminal narrowing. Estimated blood loss was minimal. A medium-sized hiatal hernia was present. One non-bleeding cratered gastric ulcer with no stigmata of bleeding was found in the prepyloric region of the stomach. The lesion was 6 mm in largest dimension. The first portion of the duodenum was normal. Impression: - LA Grade B reflux esophagitis. Rule out Juarez's esophagus. Biopsied. - Moderate Schatzki ring. Dilated. - Medium-sized hiatal hernia. - Non-bleeding gastric ulcer with no stigmata of bleeding. - Normal first portion of the duodenum. Recommendation: - Discharge patient to home. - Resume previous diet. - Use Protonix (pantoprazole) 40 mg PO BID for 8 days. - Continue present medications. Procedure Code(s): --- Professional --- 55565, Esophagogastroduodenoscopy, flexible, transoral; with insertion of guide wire followed by passage of dilator(s) through esophagus over guide wire 30378, 59, Esophagogastroduodenoscopy, flexible, transoral; with biopsy, single or multiple 58793, 59, Moderate sedation services provided by the same physician or other qualified health care transition manager performing the diagnostic or therapeutic service that the sedation supports, requiring the presence of an independent trained observer to assist in the monitoring of the patient's level of consciousness and physiological status; initial 15 minutes of intraservice time, patient age 5 years or older CPT copyright 2017 [employer]. All rights reserved. The codes documented in this report are preliminary and upon telemetry monitor review may be revised to meet current compliance requirements. Darci Wade DO 02/04/2022 2:04:03 PM This report has been signed electronically. Number of Addenda: 1 Note Initiated On: 02/04/2022 1:35 PM Addendum Number: 1 Addendum Date: 08/27/2022 6:35:12 AM MAC was used as sedation for this procedure. Darci Wade DO 08/27/2022 6:35:16 AM This report has been signed electronically.
[2022-02-04 14:05] VITALS: BP 87/46; BP 98/53; PULSE 76; RESP 16; TEMP 36.6; O2SAT 94
--- NOTE | 2022-02-04 14:05 | OP.CCLET_ITS ---
08/27/2022 Henry Webb [address] [place] [address] Re : Upper GI endoscopy procedure for Carly Carvalho Dear Dr. Webb This procedure was performed on Friday, February 04, 2022. My impressions and recommendations are as follows: Impressions : - LA Grade B reflux esophagitis. Rule out Juarez's esophagus. Biopsied. - Moderate Schatzki ring. Dilated. - Medium-sized hiatal hernia. - Non-bleeding gastric ulcer with no stigmata of bleeding. - Normal first portion of the duodenum. Recommendations : - Discharge patient to home. - Resume previous diet. - Use Protonix (pantoprazole) 40 mg PO BID for 8 days. - Continue present medications. My findings are described in the full procedure note, which is enclosed. If I can be of further assistance, please feel free to contact me at . Sincerely, Darci Friend, 02/04/2022 2:04:03 PM This report has been signed electronically.
[2022-02-04 14:10] VITALS: BP 85/51; BP 98/53; PULSE 75; RESP 16; O2SAT 95
[2022-02-04 14:15] VITALS: BP 89/51; BP 98/53; PULSE 67; RESP 16; O2SAT 97
[2022-02-04 14:20] VITALS: BP 93/60; BP 98/53; PULSE 66; RESP 16; TEMP 36.6; O2SAT 98
[2022-02-04 14:37] VITALS: BP 98/53
== END 2022-02-04 23:59 | disposition home or self-care (01) ==
LOC: EN 12:10 → AC 12:14
PROVIDERS: PCP Family Medicine; Referring Provider Internal Medicine Gastroenterology; Visit Provider Internal Medicine Gastroenterology
PROC: 0DJ08ZZ Inspection of Upper Intestinal Tract, Via Natural or Artificial Opening Endoscopic (ICD-10-PCS; CPT 43235; principal; 2022-02-04 13:25)
DX: K22.70 Barrett's esophagus without dysplasia (principal); K29.70 Gastritis, unspecified, without bleeding; K44.9 Diaphragmatic hernia without obstruction or gangrene; K22.2 Esophageal obstruction; K25.9 Gastric ulcer, unspecified as acute or chronic, without hemorrhage or perforation; F17.200 Nicotine dependence, unspecified, uncomplicated
CPT/HCPCS: 43248; 43239; 87426; 88305; 88313; 88341; 88342; C9803; J7120; C1769; J2405

== ENCOUNTER 2022-08-25 06:12 | Day surgery (SDC) | payer BC, SELFPAY ==
[2022-08-25] VITALS (25 sets, daily range): BP systolic 67–110; BP diastolic 45–91; PULSE 74–98; RESP 16–20; TEMP 36.6–38.2; O2SAT 88–99; BMI 23.7
[2022-08-25] MEDS: Lactated Ringers 1,000 ML 15 ML IV (06:49)
--- NOTE | 2022-08-25 07:17 | PCM.HP.BLA ---
History and Physical Date of Admission: 08/25/22 SAMUEL URRUTIA, is a 62 F who presents to the office today for lots of gas and bloating for one month. She called a couple weeks ago concerned it was possible side effect from pantoprazole so we switched to esomeprazole since she needs PPI for Juarez's, no improvement in her symptoms. Feels very full in stomach when she inhales. Prior to treatment for Juarez's she c/o a fullness in the epigastrium/LUQ if she's not sitting up straight or lies prone. She also had chronic burping. Worse 1 hr after eating. Better with baking soda mixed in water. Some cramping if having constipation. No prior hx of constipation, attributes her regularity to good fiber intake. But slower bowels this past month. No melena or hematochezia. No nausea or vomiting. No dysphagia. No acid reflux. Hx Barretts esophagus, gastric ulcer, FH esophageal cancer. Plan was to repeat EGD and to get colonoscopy too since she has never had lower endoscopy. Her father had esophageal cancer. Her sister has hiatal hernia and reflux. Having difficulty completely quitting cigarettes. ROS Const Constitutional: Positive for fatigue; No fever(s), headache(s), weight change, sleep problems, abnormal sleep pattern or change in appetite ENT ENT: No headache(s), difficulty swallowing, hoarseness or sore throat Resp Respiratory: No cough, hemoptysis or shortness of breath Cardio Cardiology: No chest pain at rest or generalized swelling Gastro GI: Positive for abdominal pain, bloating, change in bowel habits and constipation; No belching, change in stool character, coffee ground emesis, cramping, diarrhea, heartburn, difficulty swallowing, feeling full early, excessive flatus, incontinent of stools, Vomiting blood/hematemesis, Blood in stool, loose stools, Black,tarry stools, nausea/dyspepsia, pain with swallowing or vomiting Musc Musculoskeletal: No joint pain, back pain, joint swelling, numbness or tingling Skin Skin: No itchy eyes or rash Neuro Neurology: No behavioral changes, confusion, headache(s), numbness or tingling Psych Psychiatric: No abnormal sleep pattern, No anxiety, No behavioral changes, No change in appetite, No confusion and No depression Endo Endocrine: Positive for fatigue and increased thirst/drinking; No cold intolerance, heat intolerance or weight change Aller/Imm Allergy/Immunologic: No food intolerance or itchy eyes Stas/Lymp Hematologic/Lymphatic: No easy bleeding, easy bruising or enlarged lymph nodes Exam Const General: cooperative, healthy appearing and no acute distress Nutritional Appearance: average body habitus Orientation: alert, awake and oriented x3 HENMT Head: normal to inspection Eyes General: appearance normal, both eyes and all related structures Resp Effort & Inspection: normal respiratory effort GI Inspection: normal to inspection Palpation: soft, no hepatosplenomegaly, no masses and nontender Quality Reporting Tobacco Screening (CMS 138) Smoking Status: Current every day smoker Assessment and Plan Assessment and Plan (1) Abdominal bloating: ?Plan: 62 yr old female with recurrence of epigastric fullness as well as new constipation/bloating/gas. She had similar epigastric fullness prior to treatment of gastritis and gastric ulcer. Continue PPI for GERD/Juarez's. Schedule EGD. I encouraged colonoscopy too since she has never had one, and has new constipation, but she declines. EGD is on 08/25/22, she will have office f/u approx 2 wks later. OK to continue baking soda. She declines recommendations for managing constipation. (2) Barretts esophagus: ?Status:?Acute ?Plan: as above (3) GERD (gastroesophageal reflux disease): ?Status:?Acute ?Plan: as above (4) Gastric ulcer: ?Status:?Acute ?Plan: as above I have re-examined the patient. There are no clinical changes since date of exam.
--- NOTE | 2022-08-25 07:53 | OP.EGD_ITS ---
Patient Name: Carly Carvalho Procedure Date: 08/25/2022 7:17 AM Date of : 1960 Age: 62 Procedure: Upper GI endoscopy Indications: Epigastric abdominal pain, Peptic ulcer Providers: Darci Wade DO Medicines: Monitored Anesthesia Care Patient Profile: This is a 62 year old female. Refer to note in patient chart for documentation of history and physical. Patient has symptoms of chronic abdominal distention, chronic epigastric abdominal pain and chronic nausea. She is status post EGD for Juarez's biopsy and EGD for ulcer treatment within the past three months. Complications: No immediate complications. Procedure: Pre-Anesthesia Assessment: - Prior to the procedure, a History and Physical was performed, and patient medications and allergies were reviewed. The patient is competent. The risks and benefits of the procedure and the sedation options and risks were discussed with the patient. All questions were answered and informed consent was obtained. Patient identification and proposed procedure were verified by the physician in the pre-procedure area. Mental Status Examination: alert and oriented. Airway Examination: normal oropharyngeal airway and neck mobility. Respiratory Examination: clear to auscultation. CV Examination: normal. Prophylactic Antibiotics: The patient does not require prophylactic antibiotics. Prior Anticoagulants: The patient has taken no previous anticoagulant or antiplatelet agents. ASA Grade Assessment: II - A patient with mild systemic disease. After reviewing the risks and benefits, the patient was deemed in satisfactory condition to undergo the procedure. The anesthesia plan was to use monitored anesthesia care (MAC). Immediately prior to administration of medications, the patient was re-assessed for adequacy to receive sedatives. The heart rate, respiratory rate, oxygen saturations, blood pressure, adequacy of pulmonary ventilation, and response to care were monitored throughout the procedure. The physical status of the patient was re-assessed after the procedure. After obtaining informed consent, the endoscope was passed under direct vision. Throughout the procedure, the patient's blood pressure, pulse, and oxygen saturations were monitored continuously. The gastroscope was introduced through the mouth, and advanced to the second part of duodenum. The upper GI endoscopy was accomplished without difficulty. The patient tolerated the procedure well, except for the patient started to desaturate after the scope was pulled out. The procedure only lasted 2 minutes. The patient was taken to PACU. Anesthesia continue to assess her as she stayed in PACU. Scope In: 7:27:30 AM Scope Out: 7:29:39 AM Total Procedure Duration Time 0 hours 2 minutes 9 seconds Findings: LA Grade A (one or more mucosal breaks less than 5 mm, not extending between tops of 2 mucosal folds) esophagitis with no bleeding was found 36 to 38 cm from the incisors. A medium-sized hiatal hernia was present. A medium amount of a trichobezoar was found in the entire examined stomach. Retained fluid was found in the entire examined stomach. No gross lesions were noted in the second portion of the duodenum. Impression: - LA Grade A reflux esophagitis. - Medium-sized hiatal hernia. - A medium amount of a trichobezoar in the stomach. - Retained gastric fluid. - No gross lesions in the second portion of the duodenum. - No specimens collected. Recommendation: - Discharge patient to home. - Resume previous diet. - Continue present medications. Procedure Code(s): --- Professional --- 92576, Esophagogastroduodenoscopy, flexible, transoral; diagnostic, including collection of specimen(s) by brushing or washing, when performed (separate procedure) CPT copyright 2017 [employer]. All rights reserved. The codes documented in this report are preliminary and upon critical care physician assistant review may be revised to meet current compliance requirements. Darci Wade DO 08/25/2022 7:53:33 AM This report has been signed electronically. Number of Addenda: 0 Note Initiated On: 08/25/2022 7:17 AM
--- NOTE | 2022-08-25 07:55 | OP.CCLET_ITS ---
08/25/2022 Henry Webb [address] [place] [address] Re : Upper GI endoscopy procedure for Carly Carvalho Dear Dr. Webb This procedure was performed on Thursday, August 25, 2022. My impressions and recommendations are as follows: Impressions : - LA Grade A reflux esophagitis. - Medium-sized hiatal hernia. - A medium amount of a trichobezoar in the stomach. - Retained gastric fluid. - No gross lesions in the second portion of the duodenum. - No specimens collected. Recommendations : - Discharge patient to home. - Resume previous diet. - Continue present medications. My findings are described in the full procedure note, which is enclosed. If I can be of further assistance, please feel free to contact me at . Sincerely, Darci Wade, 08/25/2022 7:53:33 AM This report has been signed electronically.
--- NOTE | 2022-08-25 07:56 | RAD_ITS ---
STUDY: X-RAY CHEST REASON FOR EXAM: Female, 62 years old. Post op TECHNIQUE: Single AP portable view of the chest. COMPARISON: Comparison is made with prior study dated 12/07/2020. FINDINGS: EKG electrodes are seen. The lungs are clear and expanded. There is no demonstrated pleural abnormality. Normal size heart. Normal mediastinum and johnny. Normal visualized pulmonary arteries. There is atherosclerotic calcification of the aortic arch with tortuosity. Normal visualized thoracic spine. Normal visualized ribs, clavicles, and shoulders. Small hiatal hernia. RAD/Chest 1 View (Portable) IMPRESSION: Small hiatal hernia. The lungs are clear. Electronically Signed: Chris Olivera MD at 8:53 EDT ,
[2022-08-25] MEDS: Ipratropium/Albuterol Sulfate 3 ML AMPUL.NEB INHALATION (08:04)
[2022-08-25] MEDS: Acetaminophen 500 MG Tablet 1000 MG PO (08:20)
== END 2022-08-25 12:56 | disposition home or self-care (01) ==
LOC: EN 06:14 → AC 06:15
PROVIDERS: PCP Family Medicine; Referring Provider Family Medicine; Visit Provider Internal Medicine Gastroenterology
PROC: 0DJ08ZZ Inspection of Upper Intestinal Tract, Via Natural or Artificial Opening Endoscopic (ICD-10-PCS; CPT 43235; principal; 2022-08-25 07:10)
DX: K21.00 Gastro-esophageal reflux disease with esophagitis, without bleeding (principal); K44.9 Diaphragmatic hernia without obstruction or gangrene; F17.200 Nicotine dependence, unspecified, uncomplicated; Z87.19 Personal history of other diseases of the digestive system; Z80.0 Family history of malignant neoplasm of digestive organs
CPT/HCPCS: 43235; 71045; 94640; J7120; J2405

== ENCOUNTER 2022-12-25 07:58 | Emergency (ER) | payer BC, SELFPAY ==
[2022-12-25 07:59] VITALS: BP 124/61; PULSE 94; RESP 16; TEMP 36.6; O2SAT 100; BMI 23.4
--- NOTE | 2022-12-25 08:48 | EDS_ITS ---
HPI History of Present Illness Chief Complaint: Back Detail of Chief Complaint: Central dorsal back pain x1 month Informant: patient and family Onset/Context/Timing Onset: Month(s) (1 month) Context: Sudden Onset Timing: Continuous and Waxes and wanes Quality: Pain Location: Central mid back Current Severity: Mild Maximum Severity: Severe Worsened by: At times breathing Relieved by: Nothing Associated Symptoms Associated Symptoms: Radiation to both upper extremities and lower extremities. Narrative Narrative: Patient is a 62-year-old woman with history of GERD who presents with 1 month of central mid dorsal back pain that does have an intermittent pleuritic component and radiates to the upper and lower extremities. What concern patient is that it radiates now to the upper extremities. The pain is not in a dermatomal pattern. She denies paresthesia, anesthesia or motor weakness. She does endorse night sweats the past couple of weeks. No history of weight gain or weight loss. There is no history of VTE and she has no risk factors. She denies leg pain posteriorly or in the distribution of deep venous system. She has not noted any discoloration of her legs. There is no history of autoimmune disorder. She denies joint swelling or joint pain. Prior similar symptoms: No Recent Illness/Hospitalization: Yes (Seen by PCP who recommended physical therapy) [facility] Medical History Barretts esophagus FH: esophageal cancer Gastric ulcer Gastritis GERD (gastroesophageal reflux disease) History of echocardiogram History of stress test Smoker Wears glasses Home Medications esomeprazole magnesium 40 mg capsule,delayed release 40 mg PO DAILY #90 caps 07/29/22 [Rx Last Taken Unknown] Allergy/AdvReac Type Severity Reaction Status Date / Time No Known Allergies Allergy Verified 12/25/22 08:01 Surgical History Hx of appendectomy Hx of tubal ligation Social History (Updated 12/25/22 @ 08:[address] Leon Duenas MD) household members: none Smoking Status: Current every day smoker tobacco type: cigarettes substance use type: does not use ROS ROS ED Constitutional Constitutional ED: Reports sweats; Denies chills, fever(s), subjective or weight loss Eyes Eyes: Denies blurry vision, change in vision or diplopia ENT ENT ED: Denies ear pain, rhinorrhea or sore throat Cardiovascular Cardiovascular: Denies chest pain, orthopnea, palpitations, paroxysmal nocturnal dyspnea or racing heartbeat Respiratory/Chest Respiratory/Chest: Denies cough, dyspnea, dyspnea on exertion, orthopnea or paroxysmal nocturnal dyspnea Gastrointestinal Gastrointestinal: Denies abdominal pain, constipation, diarrhea, nausea or vomiting Genitourinary Genitourinary ED: Denies dysuria, hematuria or urinary frequency Musculoskeletal Musculoskeletal: Reports back pain and other Details: Radiation of pain to upper and lower extremities as documented in the HPI narrative. ; Denies arthralgias, myalgias or neck pain Integumentary Denies abscess, Abrasions or rash Neurologic Neurologic: Denies headache(s), paresthesias or weakness Psychiatric Psychiatric: Reports anxiety; Denies depression or suicidal ideation Endocrine Endocrinology: Denies cold intolerance or heat intolerance Hematologic/Lymphatic Hematologic/Lymphatic: Reports systems reviewed and no addt'l complaints, except as documented EXAM Physical Exam Const Vital Signs: 12/25/22 07:59 Temperature 97.9 F Temperature Source Temporal Pulse Rate 94 Respiratory Rate 16 Blood Pressure 124/61 H Blood Pressure Mean 82 Pulse Ox 100 Oxygen Delivery Method Room Air Positive well nourished and well developed General Appearance ED: well developed and NAD; Negative for cyanotic, diaphoretic or pallor HEENT Reports moist mucous membranes HEENT Narrative: Head is atraumatic normocephalic. Ears normal. Nares patent. Oral exam unremarkable. Eyes PERRL and EOMs intact bilaterally General Eye ED: Negative for pale conjunctiva or scleral icterus Neck no lymphadenopathy, supple and no JVD Neck Narrative: Trachea is midline. There is no cervical lymph neuropathy. Chest Wall inspection of chest normal and palpation of chest normal Resp normal respiratory effort and clear to auscultation bilaterally Cardio regular rate, regular rhythm, S1 normal heart sound, S2 normal heart sound and no murmurs GI normal to inspection, nondistended, normoactive bowel sounds, non-tender, non- distended and no masses; Negative for hepatosplenomegaly Back/Spine no CVA tenderness Back/Spine Narrative: There is no midline percussion tenderness. There is no limited range of motion. Cervical Spine: Negative for cervical spine tenderness Thoracic Spine / Upper Back: Negative for thoracic spinal tenderness or paraspinal muscle tenderness Lumbar Spine / Lower Back: Negative for lumbar spinal tenderness Extremity normal to inspection Extremity Narrative: There is no asymmetry, swelling, discoloration, leg vein distention, palpable cords or tenderness along the distribution of the deep venous system. Neuro oriented x3, CN's II-XII intact bilaterally and no sensory deficits noted Neuro Narrative: DTR 1+ at the biceps, tricep, brachialis, patella and ankle. There is no clonus or Babinski sign. Sensorium / Orientation: alert Motor Exam: strength 5/5 throughout Psych mental status grossly normal Skin no rashes or lesions noted, no wounds and skin turgor normal General Skin Exam: Negative for jaundice or pallor MDM MDM MDM Narrative Medical decision making narrative: With greater than 1 month of midline torso back pain with night sweats need to evaluate for musculoskeletal pain versus inflammatory process i.e. malignancy specifically. Doubt autoimmune. Patient was informed the cause of the pain radiating to her arms and legs is unknown and from a neuroanatomy perspective does not make sense. To evaluate patient's back pain since there has been no imaging x-rays were obtained. CBC was obtained to assess white count and rule out anemia. Competence metabolic panel was obtained to assess renal function, alkaline phosphatase and calcium as well as ESR and CRP as a many inflammatory/malignancy work-up. Patient has seen Dr. Wade. Patient did have an EGD which revealed reflux without evidence of esophagitis. This may be an atypical presentation for reflux. Patient reports compliance with medication. Patient was informed of her laboratory results and x-ray results. Recommended keeping appointment with physical therapy and also alternating ice and heat. Also suggested seeing a Doris therapist. Lab Data Attestation: I reviewed the patient's lab results. Lab results narrative: Patient has neutropenia. Differential is unremarkable. H&H is unremarkable. Comprehensive metabolic panel is unremarkable. ESR and CRP are normal. Comprehensive metabolic panel is normal and specifically alk phos and calcium. ESR is 4 and CRP is 2.9. Labs: Laboratory Results - last 24 hr 12/25/22 12/25/22 08:49 08:49 WBC 4.1 L RBC 4.88 Hgb 15.1 H Hct 46.1 MCV 94.5 MCH 30.9 MCHC 32.8 RDW Std Deviation 46.7 H RDW Coeff of Shanice 13.3 Plt Count 220 MPV 10.3 Immature Gran % (Auto) 0.200 Neut % (Auto) 60.7 Lymph % (Auto) 29.2 Sevier % (Auto) 7.5 Eos % (Auto) 1.7 Baso % (Auto) 0.7 Absolute Neuts (auto) 2.5 Absolute Lymphs (auto) 1.21 Nucleated RBC % 0 ESR 4 Sodium 141 Potassium 3.9 Chloride 106 Carbon Dioxide 28.0 Anion Gap 7 BUN 15 Creatinine 0.76 Estim Creat Clear Calc 55.13 Est GFR (MDRD) Af Amer 99 Est GFR (MDRD) Non-Af 82 BUN/Creatinine Ratio 19.8 Glucose 90 Calcium 8.7 Total Bilirubin 0.80 AST 14 L ALT 22 Alkaline Phosphatase 64 C-React Prot Ext Range < 2.90 Total Protein 6.9 Albumin 3.3 Globulin 3.6 Albumin/Globulin Ratio 0.9 Radiography Chest X-Ray - ED: 2 View and Read by ED Physician (Patient has minimal degenerative changes noted in the upper dorsal spine. There is no malalignment. There is no lytic or blastic lesions noted. The mediastinum is unremarkable. Other osseous structures that were seen were unremarkable. This was independently reviewed and interpreted by me.) Diagnostic Testing: Clinical Impression(s) from Imaging Studies Thoracic Spine X-Ray 12/25/22 08:58 IMPRESSION: Increased kyphosis. Mild degree of spondylosis and disc space narrowing in the upper dorsal spine. Electronically Signed: Chris Olivera MD at 9:12 EST , Discharge Plan Triage Chief Complaint: Back ED Provider: Leon Duenas Dx/Rx/DC Orders Clinical Impression: Dorsal back pain, Barretts esophagus, Anxiety, GERD (gastroesophageal reflux disease) Instructions: ED Back Pain (Acute or Chronic) Prescriptions: No Action esomeprazole magnesium 40 mg capsule,delayed release(DR/EC) 40 mg PO DAILY Qty: 90 2RF Primary Care Provider: Henry Webb Referrals: Henry Webb MD [Primary Care Provider] - 1-2 Weeks Disposition Disposition: Home, Self Care
--- NOTE | 2022-12-25 08:58 | RAD_ITS ---
STUDY: X-RAY - THORACIC SPINE REASON FOR EXAM: Female, 62 years old. Injury/Pain TECHNIQUE: 3 view(s) of the thoracic spine were obtained. COMPARISON: Comparison is made with prior study dated 03/03/2014. FINDINGS: There is an increase in the normal thoracic kyphosis. There is no substantial scoliosis. Mild spondylosis and disc space narrowing in the upper dorsal spine. The soft tissue structures are unremarkable. RAD/Thoracic Spine 3 Views IMPRESSION: Increased kyphosis. Mild degree of spondylosis and disc space narrowing in the upper dorsal spine. Electronically Signed: Chris Olivera MD at 9:12 EST ,
[2022-12-25 09:02] LABS: Absolute Lymphocyte Count 1.21 X10^3/uL (0.83-4.51); Absolute Neutrophil Count 2.5 X10^3/uL (2.0-7.7); Basophil# 0.03 X10^3/uL; Basophil% 0.7 % (0-1); Eosinophil# 0.07 X10^3/uL; Eosinophils% 1.7 % (0-5); Hematocrit 46.1 % (37-47); Hemoglobin 15.1 g/dL (12.0-15.0); Lymphocyte # 1.21 X10^3/ul (0.83-4.51); Lymphocyte % 29.2 % (19-41); Mean Corp Hgb Conc 32.8 g/dL (32-36); Mean Corpuscular Hgb 30.9 pg (27.0-32.0); Mean Corpuscular Volume 94.5 fL (81-99); Mean Platelet Vol. 10.3 fl (6.2-12.0); Monocyte# 0.31 X10^3/uL; Monocyte% 7.5 % (0-10); NRBC Flagged by Analyzer 0 % (0-5); Neutrophil # 2.51 X10^3/uL (2.7-7.7); Neutrophil % 60.7 % (47-70); Platelet Count 220 K/mm3 (150-450); RBC Distribution Width CV 13.3 % (11.6-14.6); RBC Distribution Width SD 46.7 fl (35.1-43.9); Red Blood Count 4.88 M/mm3 (4.2-5.4); White Blood Count 4.1 K/mm3 (4.4-11.0)
[2022-12-25 09:04] LABS: Erythrocyte Sedimentation Rate 4 mm/hr (0-30)
[2022-12-25 09:16] LABS: ALB/GLOB Ratio 0.9 RATIO (0.9-2.4); AST(SGOT) 14 U/L (15-37); Alanine Aminotransfer ALT/SGPT 22 U/L (13-56); Albumin, Serum 3.3 g/dL (3.2-5.0); Alkaline Phosphatase 64 U/L (45-117); Anion Gap 7 (5-15); BUN 15 mg/dL (7-18); BUN/Creat Ratio 19.8 RATIO (10-20); CRP < 2.90 mg/L (0.0-3.0); Calcium,Total 8.7 mg/dL (8.5-10.1); Chloride 106 mmol/L (98-107); Creatinine, Serum 0.76 mg/dL (0.55-1.02); EST Glomerular Filtration Rate 82 mL/min (>60); Est Glom Filt Rate - Afr Amer 99 mL/min (>60); Estimated Creatinine Clearance 55.13 ml/min; Globulin 3.6 g/dL (2.2-4.2); Glucose 90 mg/dL (74-106); Potassium 3.9 mmol/L (3.5-5.1); Protein, Total 6.9 g/dL (6.4-8.2); Sodium Level 141 mmol/L (136-145)
[2022-12-25 11:10] VITALS: BP 124/62; PULSE 71; RESP 15; O2SAT 98
== END 2022-12-25 11:12 | disposition home or self-care (01) ==
PROVIDERS: Emergency Provider Emergency Medicine; PCP Family Medicine; Visit Provider Emergency Medicine
DX: M54.9 Dorsalgia, unspecified (principal); K22.70 Barrett's esophagus without dysplasia; F41.9 Anxiety disorder, unspecified; K21.9 Gastro-esophageal reflux disease without esophagitis; F17.210 Nicotine dependence, cigarettes, uncomplicated; Z79.899 Other long term (current) drug therapy
CPT/HCPCS: 72072; 80053; 85025; 85652; 86140; 99282

== ENCOUNTER → 2023-01-05 | Outpatient (CLI) | payer BC, SELFPAY ==
--- NOTE | 2023-01-05 16:36 | CT_ITS ---
STUDY: LOW DOSE CT LUNG CANCER SCREENING REASON FOR EXAM: Female, 62 years old. Tobacco use/abuse. Patient smoked 2 cigarettes per day for 20 years. RADIATION DOSAGE (If Supplied By Facility): CTDIvol = ( 2.01 ) mGy, DLP = ( 68.21 ) mGycm TECHNIQUE: No contrast was administered. Low dose technique was utilized (average mAS-38 and kVp 120). 1.25 mm axial source images with a slice interval of 1.25-mm were reconstructed in lung windows. 2.5 mm axial source images with a slice interval of 2.5-mm were reconstructed in lung windows. 5.0 mm axial source images with a slice interval of 5.0-mm were reconstructed in soft tissue windows. COMPARISON: Comparison is made with prior study dated 05/16/2021 and 01/13/2019. NODULES: Nodule #: Density: Lung location: lobe: cm from pleura Location in series: Series Number: Image: Size - D1 x D2 mm: mm: average diameter Margin: Shape: Calcification: Fat: Temporal comparison: Total lung nodules (excluding granulomas): Emphysema: Stable scarring at the right lung apex without evidence of a focal area of groundglass appearance. This is unchanged. Hyperinflation. Emphysematous changes more prominent in the upper lobes. Endobronchial lesion: None Aorta: Atherosclerotic plaque formation of the aortic arch. CORONARY ARTERIES: Coronary artery calcification is not seen. Heart: Unremarkable Pulmonary artery: Unremarkable Mediastinal nodes: Small benign-appearing mediastinal lymph nodes. Other chest and abdominal findings: CT/Low Dose CT Lung Screening IMPRESSION: Lung-RADS category 2 - Continue annual screening with LDCT in 12 months. IMPORTANT NOTES FOR USE: ACR Lung-RADS Version 1.1 Assessment Categories Release Date: 2018 Category: Coded 0-4 bases on nodule(s) with highest degree of suspicion. Negative screen is defined as categories 1 and 2; a positive screen is defined as categories 3 and 4. Category 3 and 4A nodules that are unchanged on interval CT should be coded as category 2, and individuals returned to screening in 12 months. Category 4X: Category 3 or 4 nodules with additional imaging findings that increase the suspicion of lung cancer, such as spiculation, GGN that doubles in size in 1 year, enlarged lymph notes, etc. Category Modifiers: S (significant finding unrelated to lung cancer) Electronically Signed: Chris Olivera MD at 15:18 EST ,
== END | disposition home or self-care (01) ==
PROVIDERS: PCP Family Medicine; Referring Provider Family Medicine; Visit Provider Family Medicine
DX: F17.210 Nicotine dependence, cigarettes, uncomplicated (principal)
CPT/HCPCS: 71271

== ENCOUNTER 2023-07-21 15:44 | Outpatient (CLI) | payer BC, SELFPAY ==
[2023-07-21 18:32] LABS: Absolute Lymphocyte Count 1.87 X10^3/uL (0.83-4.51); Absolute Neutrophil Count 4.6 X10^3/uL (2.0-7.7); Basophil# 0.03 X10^3/uL; Basophil% 0.4 % (0-1); Eosinophil# 0.05 X10^3/uL; Eosinophils% 0.7 % (0-5); Hematocrit 43.2 % (37-47); Hemoglobin 14.2 g/dL (12.0-15.0); Lymphocyte # 1.87 X10^3/ul (0.83-4.51); Lymphocyte % 26.6 % (19-41); Mean Corp Hgb Conc 32.9 g/dL (32-36); Mean Corpuscular Hgb 31.2 pg (27.0-32.0); Mean Corpuscular Volume 94.9 fL (81-99); Mean Platelet Vol. 10.4 fl (6.2-12.0); Monocyte# 0.45 X10^3/uL; Monocyte% 6.4 % (0-10); NRBC Flagged by Analyzer 0 % (0-5); Neutrophil % 65.6 % (47-70); Platelet Count 287 K/mm3 (150-450); RBC Distribution Width CV 13.9 % (11.6-14.6); RBC Distribution Width SD 48.7 fl (35.1-43.9); Red Blood Count 4.55 M/mm3 (4.2-5.4)
[2023-07-21 18:50] LABS: Erythrocyte Sedimentation Rate 11 mm/hr (0-30)
[2023-07-21 18:54] LABS: AST(SGOT) 15 U/L (15-37); Alanine Aminotransfer ALT/SGPT 21 U/L (13-56); Albumin, Serum 3.8 g/dL (3.2-5.0); Alkaline Phosphatase 66 U/L (45-117); Anion Gap 8 (5-15); BUN 11 mg/dL (7-18); BUN/Creat Ratio 16.7 RATIO (10-20); CRP < 2.90 mg/L (0.0-3.0); Calcium,Total 9.2 mg/dL (8.5-10.1); Chloride 108 mmol/L (98-107); Creatinine, Serum 0.66 mg/dL (0.55-1.02); EST Glomerular Filtration Rate 96 mL/min (>60); Est Glom Filt Rate - Afr Amer 116 mL/min (>60); Globulin 3.8 g/dL (2.2-4.2); Glucose 83 mg/dL (74-106); Lipase 22 U/L (13-75); Potassium 3.5 mmol/L (3.5-5.1); Protein, Total 7.6 g/dL (6.4-8.2); Sodium Level 142 mmol/L (136-145)
[2023-07-23 13:08] LABS: ANTINUCLEAR ANTIBODIES DIRECT Negative (Negative)
[2023-07-24 12:09] LABS: Anti-Smooth Muscle ABS 10 Units (0-19); Lyme Scn Total Ab w/Rflx Negative (Negative); QNTFERON TB Mitogen Value > 10.00 IU/mL (.); QNTFERON TB Nil Value 0.01 IU/mL (.); QNTFERON TB1+ Ag Value 0.03 IU/mL (.); QNTFERON TB2+ Ag Value 0.03 IU/mL (.); QNTIFERON TB Positive Criteria Negative (Negative)
== END 2023-07-21 23:59 | disposition home or self-care (01) ==
LOC: MTLAB 15:45
PROVIDERS: PCP Family Medicine; Referring Provider Family Medicine; Visit Provider Family Medicine
DX: M79.18 Myalgia, other site (principal); R14.0 Abdominal distension (gaseous); R10.13 Epigastric pain; R61 Generalized hyperhidrosis
CPT/HCPCS: 80053; 83516; 83690; 85025; 85652; 86038; 86140; 86480; 86618

== ENCOUNTER → 2023-07-22 | Outpatient (CLI) | payer BC, SELFPAY ==
[2023-07-27 21:07] LABS: Fats, Neutral Normal (.); Fats, Total Increased (.)
[2023-07-28 15:08] LABS: Pancreatic Elastase, Fecal 196 (>200)
== END | disposition home or self-care (01) ==
PROVIDERS: PCP Family Medicine; Referring Provider Family Medicine; Visit Provider Family Medicine
DX: M79.18 Myalgia, other site (principal); R14.0 Abdominal distension (gaseous); R10.13 Epigastric pain; R61 Generalized hyperhidrosis
CPT/HCPCS: 82653; 82705; 83630

== ENCOUNTER → 2023-08-11 | Outpatient (CLI) | payer BC, SELFPAY ==
--- NOTE | 2023-08-11 17:43 | CT_ITS ---
INDICATION: lower thorax and epig pain w/ colick abd pain/night sweats. EXAMINATION: CT ABDOMEN WITH IV CONTRAST CT Abdomen W/ Contrast Injection TECHNIQUE: Helically acquired images were obtained of the abdomen following IV contrast. A radiation dose optimization technique was used for this scan. IV Contrast dosage and agent: Oral contrast: None. RADIATION DOSAGE (If Supplied By Facility): CTDIvol = ( 12.18 ) mGy, DLP = ( 282.85 ) mGycm COMPARISON: FINDINGS: LOWER CHEST: Lung bases are clear. No cardiomegaly or pericardial effusion. LIVER: Homogeneous. 9 mm left hepatic cyst. GALLBLADDER AND BILIARY TREE: No calcified gallstones. No gallbladder distension or wall edema. No intra- or extrahepatic biliary ductal dilation. PANCREAS: No focal cystic or solid mass. SPLEEN: Normal size without focal cystic or solid mass. Granulomatous calcifications are noted. ADRENAL GLANDS: No nodules. KIDNEYS AND URETERS: Normal renal size and position. No hydronephrosis. PERITONEUM: No ascites or free air. No other fluid collection. BOWEL: No stomach or bowel distension. No focal inflammatory change. Nonvisualization of the appendix. LYMPH NODES: No enlarged mesenteric or retroperitoneal lymph nodes. VESSELS: Aorta is non-dilated. ABDOMINAL WALL: No discrete abdominal wall hernia. BONES: No lytic or blastic abnormality. CT/Abdomen WITH IV Contrast IMPRESSION: Hepatic cyst. Electronically Signed: David Mckinney DO at 18:15 EDT Reading Location ID and State: [facility] / [place] Tel [phone], Service support ,
== END | disposition home or self-care (01) ==
LOC: CT 17:41
PROVIDERS: PCP Family Medicine; Referring Provider Family Medicine; Visit Provider Family Medicine
DX: R10.13 Epigastric pain (principal)
CPT/HCPCS: 74160; Q9967

== ENCOUNTER 2023-09-14 07:05 | Emergency (ER) | payer BC, SELFPAY ==
[2023-09-14 07:05] VITALS: BP 122/68; PULSE 76; RESP 14; TEMP 36.5; O2SAT 100; BMI 22.6
--- NOTE | 2023-09-14 07:10 | EX.ED.DYSGE1 ---
HPI History of Present Illness Chief Complaint: General Illness [facility] Medical History Barretts esophagus FH: esophageal cancer Gastric ulcer Gastritis GERD (gastroesophageal reflux disease) History of echocardiogram History of stress test Smoker Wears glasses Home Medications esomeprazole magnesium 40 mg capsule,delayed release 40 mg PO DAILY #90 caps 07/20/23 [Rx Last Taken Unknown] ondansetron 4 mg disintegrating tablet 4 mg PO Q8H PRN nausea and vomiting 3 days #9 tabs 09/14/23 [Rx Last Taken Unknown] Allergy/AdvReac Type Severity Reaction Status Date / Time No Known Allergies Allergy Verified 09/14/23 07:07 Surgical History Hx of appendectomy Hx of tubal ligation Social History household members: none Smoking Status: Current every day smoker tobacco type: cigarettes substance use type: does not use EXAM Physical Exam Const Vital Signs: 09/14/23 07:05 09/14/23 07:05 09/14/23 09:05 Temperature 97.7 F L 97.6 F L Temperature Source Temporal Pulse Rate 76 64 Respiratory Rate 14 14 Respiratory Effort Normal Respiratory Pattern Normal Blood Pressure 122/68 H 134/78 H Blood Pressure Mean 86 96 Pulse Ox 100 100 Oxygen Delivery Method Room Air MDM MDM MDM Narrative Medical decision making narrative: HISTORY OF PRESENT ILLNESS: 63-year-old female presents with concern for fatigue, nausea, diarrhea and shortness of breath. She states this began on Thursday. No sick contacts. She states she had epigastric abdominal discomfort and nausea as well as diarrhea. Denies any hematemesis. Denies any melena or hematochezia. Denies any urinary complaints. Notes history of appendicitis but denies any abdominal surgeries. She also complains of shortness of breath. She denies any chest pain. She states shortness breath is worse when she walks around. States has been excessively tired. Denies any cough or fever. Denies any leg swelling, orthopnea or paroxysmal nocturnal dyspnea. Denies any bleeding diathesis. She states she still smokes. The patient denies recent surgery in the last 4 weeks or immobilization in the last 3 days, denies previous diagnosis of DVT or PE, hemoptysis, unilateral leg swelling or malignancy with treatment the last 6 months or palliative. No estrogen use noted. REVIEW OF SYSTEMS: Pertinent positives: Fatigue, nausea, diarrhea and shortness of breath Pertinent negatives: Chest pain, syncope, focal weakness, unilateral leg swelling PHYSICAL EXAM: Nursing triage notes reviewed, Vital signs reviewed Constitutional: please see mdm HENT: MMM Eyes: Pupils equal round and reactive to light, Extraocular muscles intact Neck: No stridor, no JVD, full neck ROM Lungs: Clear to auscultation, No wheezing or rales. No increased work of breathing, no conversational dyspnea, no accessory muscle use, no nasal flaring. No respiratory distress noted Heart: Regular rate and rhythm, No murmurs, No rubs and No gallops, 2+ distal pulses (radial, femoral, posterior tibial) in all extremities Abdomen: Soft, there is no tenderness, rigidity, rebound or guarding, no obvious peritoneal signs, no palpable pulsatile abdominal masses, no auscultated abdominal bruit : No CVAT Extremities: No edema Neuro: No focal neurological deficits, cranial nerves II through XII intact, 5/5 strength in all extremities. Intact sensation to light touch in all extremities, 2+ reflexes bilateral patella tendons. Normal gait. No ataxia. Skin: No rash or lesions noted MEDICAL DECISION MAKING: Chief Complaint: External records reviewed: Prior imaging studies reviewed: Small hiatal hernia noted on x-ray from July 2022 Factors affecting care: GERD, peptic ulcer disease, Juarez's esophagus and gastritis Social determinants of health: none History obtained from others: none Consults: none [facility] Narrative: Patient was hemodynamically stable, afebrile, nontoxic-appearing. Exam without peritoneal signs. Lungs are clear without wheezing rales, respiratory distress, focal consolidative auscultative findings. I considered the following differential diagnosis: Viral illness, pneumonia, electrolyte abnormality, dehydration, ACS, arrhythmia, peptic ulcer disease, gastritis, perforated viscus I considered perforated viscus as a potential etiology however the patient had a benign abdominal exam and no peritoneal signs and stable vitals. Her chest x-ray showed I obtained a broad lab and imaging work-up to further elucidate etiology patient complaints. Treated. Symptomatic with 1 L normal saline for rehydration and Zofran for nausea. ALL IMAGES (IF OBTAINED) HAVE BEEN PERSONALLY REVIEWED AND INTERPRETED BY MYSELF. EKG with normal sinus rhythm, normal axis, normal was, no STEMI CBC without leukocytosis, severe anemia, no thrombocytopenia. Urinalysis shows no evidence of urinary inflammation suggestive of UTI I have personally reviewed the patient's chest x-ray. Chest x-ray is unremarkable for pulmonary edema, pneumothorax, pneumonia or focal cardiopulmonary abnormality. No evidence of free air under the diaphragm to suggest perforated viscus BMP with mild hypokalemia otherwise no significant [place] abnormalities, anion gap suggest endorgan hypoperfusion, no VONDA LFTs show no evidence of hepatobiliary pathology. Lipase is wnl indicating no pancreatic inflammation. COVID is negative Troponin is negative, no evidence of myocardial ischemia The synthesis of the patient's labs images EKG suggest no evidence of acute life-threatening pathology. I suspect patient suffering from exacerbation of her underlying GI illness. Gave Zofran for symptomatic nausea relief gave PCP and GI follow-up instructions. The patient and/or family, caregivers express understanding. The patient and/or family, caregivers agrees with the plan. Shared decision making: I will have a discussion with the patient and or visitors regarding risk/benefits of further testing or admission. They will be made aware of of the risk/benefits inherent in this decision they will be given the opportunity to voice understanding. Total critical care time today provided was at least 0 minutes. This excludes separately billable procedures. Critical care time (if documented) is secondary to the patient having high probability of clinically significant/life threatening deterioration in the patient's condition which required my urgent intervention. Impression: 1. Shortness of breath 2. Nausea 3. Diarrhea 4. Hypokalemia Dispo: Discharge Lab Data Attestation: I reviewed the patient's lab results. Labs: Laboratory Results - last 24 hr 09/14/23 09/14/23 07:39 08:05 WBC 5.9 RBC 4.94 Hgb 15.1 H Hct 47.2 H MCV 95.5 MCH 30.6 MCHC 32.0 RDW Std Deviation 47.5 H RDW Coeff of Shanice 13.4 Plt Count 272 MPV 10.0 Sodium 141 Potassium 3.4 L Chloride 107 Carbon Dioxide 27.0 Anion Gap 7 BUN 13 Creatinine 0.83 Estim Creat Clear Calc 52.35 Est GFR (MDRD) Af Amer 89 Est GFR (MDRD) Non-Af 74 BUN/Creatinine Ratio 15.6 Glucose 89 Calcium 9.1 Total Bilirubin 0.80 Direct Bilirubin 0.17 AST 13 L ALT 21 Alkaline Phosphatase 81 Troponin I High Sens 3 Total Protein 7.5 Albumin 3.4 Globulin 4.1 Lipase 37 Urine Color Yellow Urine Clarity Clear Urine pH 7.0 Ur Specific [place] 1.010 Urine Protein Negative Urine Glucose (UA) Normal Urine Ketones Negative Urine Occult Blood 10 H Urine Nitrite Negative Urine Bilirubin Negative Urine Urobilinogen Normal Ur Leukocyte Esterase Negative Urine RBC 0 SEEN Urine WBC 0 SEEN Ur Squamous Epith Cells 0 SEEN Urine Bacteria 0 SEEN Urine Mucus 0 SEEN Radiography Diagnostic Testing: Clinical Impression(s) from Imaging Studies Chest X-Ray 09/14/23 07:50 IMPRESSION: No acute cardiopulmonary abnormality. Electronically Signed: Sung Torres MD at 8:16 EDT , Discharge Plan Triage Chief Complaint: General Illness ED Provider: Herbert Garcia Dx/Rx/DC Orders Instructions: ED Vomiting (Adult) Prescriptions: New ondansetron 4 mg tablet,disintegrating 4 mg PO Q8H PRN (Reason: nausea and vomiting) 3 Days Qty: 9 0RF No Action esomeprazole magnesium 40 mg capsule,delayed release(DR/EC) 40 mg PO DAILY Qty: 90 2RF Primary Care Provider: Henry Webb Referrals: Henry Webb MD [Primary Care Provider] - Friend,DO Darci [Med Staff - Active Staff] - Activity Restrictions/Additional Instructions: Thank you for trusting us with your care today! Please take Tylenol (2 pills, 650 mg), ibuprofen (2 pills, 400 mg) every 6 hours as needed for pain and fever control. Please take Zofran as needed for nausea control. Please return to the emergency department if your symptoms change or worsen. Please follow with your primary care physician for further outpatient evaluation and management. Disposition Disposition: Home, Self Care Discharge Date/Time: 09/14/23 09:08
--- NOTE | 2023-09-14 07:13 | EKG12_ITS ---
Test Reason : Blood Pressure : / mmHG Vent. Rate : 070 BPM Atrial Rate : 070 BPM P-R Int : 148 ms QRS Dur : 072 ms QT Int : 388 ms P-R-T Axes : 008 047 060 degrees QTc Int : 419 ms Normal sinus rhythm Normal ECG When compared with ECG of 07-DEC-2020 09:07, No significant change was found Confirmed by HONEY ANGELES MD ([id number]), brands editor KASSIDY ALVARES ([id number]) on 09/16/2023 2:28:58 PM Referred By: ANA Confirmed By:HONEY ANGELES MD
[2023-09-14] MEDS: Ondansetron 4 MG/2 ML Vial IV (07:35)
[2023-09-14] MEDS: 0.9% Normal Saline (500mL Bag) 500 ML 1000 ML IV (07:35)
--- NOTE | 2023-09-14 07:50 | RAD_ITS ---
EXAM: XR CHEST, 1 VIEW CLINICAL INDICATION: Shortness of breath TECHNIQUE: Frontal view of the chest. COMPARISON: XR Chest dated 08/25/2022 FINDINGS: LUNGS AND PLEURAL SPACES: No consolidation or edema. No pneumothorax. No effusion. HEART: Normal heart size. MEDIASTINUM: Previously noted hiatal hernia is not identified on this exam. BONES/JOINTS: No acute abnormality. RAD/Chest 1 View (Portable) IMPRESSION: No acute cardiopulmonary abnormality. Electronically Signed: Sung Torres MD at 8:16 EDT ,
[2023-09-14 08:10] LABS: Bacteria 0 SEEN /hpf (None Seen); Mucous, Urine 0 SEEN /hpf (<or=2+); Red Blood Cells-Urine 0 SEEN /hpf (0-5); Squamous Epithelial Cells - UA 0 SEEN /hpf (5-10); White Blood Cells 0 SEEN /hpf (0-5)
[2023-09-14 08:11] LABS: Hematocrit 47.2 % (37-47); Hemoglobin 15.1 g/dL (12.0-15.0); Mean Corpuscular Hgb 30.6 pg (27.0-32.0); Mean Corpuscular Volume 95.5 fL (81-99); Platelet Count 272 K/mm3 (150-450); RBC Distribution Width CV 13.4 % (11.6-14.6); RBC Distribution Width SD 47.5 fl (35.1-43.9); Red Blood Count 4.94 M/mm3 (4.2-5.4); White Blood Count 5.9 K/mm3 (4.4-11.0)
[2023-09-14 08:12] LABS: Color, Urine Yellow (Yellow); Glucose, Dipstick Normal (Normal); Ketone-Dipstick Negative (Negative); Leukocyte Esterase-Dipstick Negative /ul (Negative); Nitrite-Dipstick Negative (Negative); Occult Blood-Urine 10 /ul (Negative); Protein-Dipstick Negative (Negative); Urine Bilirubin Dipstick Negative (Negative); Urine Clarity Clear (Clear); Urine Urobilinogen Normal (Normal)
[2023-09-14 08:24] LABS: AST(SGOT) 13 U/L (15-37); Alanine Aminotransfer ALT/SGPT 21 U/L (13-56); Albumin, Serum 3.4 g/dL (3.2-5.0); Alkaline Phosphatase 81 U/L (45-117); Anion Gap 7 (5-15); BUN 13 mg/dL (7-18); BUN/Creat Ratio 15.6 RATIO (10-20); Bilirubin, Direct 0.17 mg/dL (0.00-0.30); Calcium,Total 9.1 mg/dL (8.5-10.1); Chloride 107 mmol/L (98-107); Creatinine, Serum 0.83 mg/dL (0.55-1.02); EST Glomerular Filtration Rate 74 mL/min (>60); Est Glom Filt Rate - Afr Amer 89 mL/min (>60); Estimated Creatinine Clearance 52.35 ml/min; Globulin 4.1 g/dL (2.2-4.2); Glucose 89 mg/dL (74-106); Lipase 37 U/L (13-75); Potassium 3.4 mmol/L (3.5-5.1); Protein, Total 7.5 g/dL (6.4-8.2); Sodium Level 141 mmol/L (136-145); Troponin-I HS 3 pg/mL (3.0-54.0)
[2023-09-14 09:05] VITALS: BP 134/78; PULSE 64; RESP 14; TEMP 36.4; O2SAT 100
== END 2023-09-14 09:08 | disposition home or self-care (01) ==
PROVIDERS: Emergency Provider Emergency Medicine; PCP Family Medicine; Visit Provider Emergency Medicine
DX: R06.02 Shortness of breath (principal); R11.0 Nausea; R19.7 Diarrhea, unspecified; E87.6 Hypokalemia; F17.210 Nicotine dependence, cigarettes, uncomplicated
CPT/HCPCS: 71045; 80048; 80076; 81001; 83690; 84484; 85027; 87428; 93005; 96374; 99284; J7040; J2405

== ENCOUNTER → 2024-01-06 | Outpatient (CLI) | payer BC, SELFPAY ==
--- NOTE | 2024-01-06 16:42 | CT_ITS ---
HISTORY: ongoing tobacco smoking use. TECHNIQUE: Helically acquired images were obtained of the chest without contrast. A radiation dose optimization technique was used for this scan. 745 images. COMPARISON: 01/05/2023, 05/16/2021, 01/13/2019. FINDINGS: LARGE AIRWAYS: Patent. LUNGS: Mild emphysema with chronic mild biapical scarring. Unchanged 1.4 cm right apical groundglass opacity. No new suspicious nodule or acute alveolar consolidation. PLEURA: No pneumothorax or significant pleural effusion. HEART/PERICARDIUM: Heart within normal limits in size. Minimal coronary artery calcification. No pericardial effusion. VESSELS: Thoracic aorta nondilated. Mild atherosclerosis. MEDIASTINUM/SACHIN: No pathologically enlarged adenopathy. UPPER ABDOMEN: Stable small cyst in the left hepatic lobe. Splenic calcification. BONES: Intact. CT/Low Dose CT Lung Screening IMPRESSION: No significant interval change. Lungs-RADS category 2: Continue annual screening with low dose CT. Electronically Signed: Jeanne Stone MD at 10:10 EST ,
--- OUTSIDE RECORDS SUMMARY | 2024-01-06 19:16 | XMS RPT_ITS | CCD ---
Author Name Unknown Address [address] [place] [address] Organization [facility] Care Team Providers Care Metalizing Supervisor Name Role Phone Jon BARRY, Bina Vo Primary Care Provider TAMIA CANCHOLA Referring Unavailable BINA WEBB Primary Care Unavailable TAMIA CANCHOLA Referring Unavailable IBNA WEBB Primary Care Unavailable TAMIA CANCHOLA Attending Unavailable BINA WEBB Primary Care Unavailable BINA WEBB Primary Care Unavailable HOSSEIN MORIN Referring Unavailable BINA WEBB Primary Care Unavailable Bina Webb MD Primary Care Provider [phone] Allergies Allergy Classification Reported Allergen(s) Allergy Type Date of Onset Reaction(s) Facility (6 sources) Seasonal allergy; Translations: [SEASONAL ALLERGIES] Allergy to substance 01-26-2014 Intolerance [facility] Work Phone: Medications Current Medications Medication Drug Class(es) Dates Sig (Normalized) Sig (Original) amoxicillin 875 mg / clavulanate 125 mg oral tablet (2 sources) Penicillin-class Antibacterial Start: 08-30-2022 End: 09-09-2022 take 1 tablet by mouth twice daily amoxicillin-clav ulanic acid (AUGMENTIN) 875-125 mg per tablet Take 1 tablet by mouth twice daily for 10 days. 20 tablet 0 08/30/2022 09/09/2022 Active Completed/Discontinued Medications Medication Drug Class(es) Dates Sig (Normalized) Sig (Original) esomeprazole 40 mg delayed release oral capsule (5 sources) Proton Pump Inhibitor Start: 07-29-2022 take 1 capsule by mouth once daily esomeprazole (NEXIUM) 40 mg capsule Take 40 mg by mouth once daily. 0 07/29/2022 Active Problems Active Problems Problem Classification Problem Date Documented Da te Episodic/Chronic Menopausal disorders (5 sources) Menopausal symptom; Translations: [Menopausal and female climacteric states] Onset: 01-26-2014 01-26-2014 Chronic Nonmalignant breast conditions (3 sources) Mastodynia; Translations: [Mastodynia] Onset: 12-30-2022 Episodic Pneumonia (except that caused by tuberculosis or sexually transmitted disease) (1 source) Infective pneumonia; Translations: [Pneumonia, unspecified organism] Episodic Unclassified (1 source) Acute cough; Translations: [Acute cough] Onset: 08-30-2022 Past or Other Problems Problem Classification Problem Date Documented Da te Episodic/Chronic Residual codes; unclassified (5 sources) Insomnia; Translations: [Insomnia, unspecified] Onset: 01-26-2014 01-26-2014 Episodic Results Test Name Value Interpretation Reference Range Facil ity Vital Signs Date Time Vital Sign Value Performing Clinician Faci lity 08-30-2022 10:32-0400 Body temperature 98.2 [degF] Hossein Athy PA-C Work Phone: [facility] 08-30-2022 10:32-0400 Body weight 54.98 kg Hossein Athy PA-C Work Phone: [facility] 08-30-2022 10:32-0400 Diastolic blood pressure 74 mm[Hg] Hossein Athy PA-C Work Phone: [facility] 08-30-2022 10:32-0400 Heart rate 99 /min Hossein Athy PA-C Work Phone: [facility] 08-30-2022 10:32-0400 Respiratory rate 18 /min Hossein Athy PA-C Work Phone: [facility] 08-30-2022 10:32-0400 SaO2% (BldA) [Mass fraction] 97 % Hossein Athy PA-C Work Phone: [facility] 08-30-2022 10:32-0400 Systolic blood pressure 110 mm[Hg] Hossein Athy PA-C Work Phone: [facility] Encounters Encounter Date Encounter Type Care Provider Facility Start: 12-30-2022 End: 12-31-2022 ambulatory TAMIA CANCHOLA Facility:[facility] Start: 12-30-2022 End: 12-30-2022 Subsequent hospital visit by physician [facility] Work Phone: Radiology Procedures Date Procedure Procedure Detail Performing Clinician Start: 12-30-2022 Us breast uni real t samuel with image limited Tamia Canchola MD Work Phone: Start: 11-11-2021 Mammography Hossein Morin PA-C Work Phone: Start: 07-15-2016 Colonoscopy Hossein Morin PA-C Work Phone: Start: 07-15-2016 Lipid 1996 panel - S patric or Plasma [facility] 1 Work Phone: Plan of Treatment Date Care Activity Detail Author Start: 05-01-2025 HPV TESTING HPV TESTING [facility] Start: 05-01-2025 PAP TESTING PAP TESTING [facility] Start: 02-02-2025 Urine microalbumin profile DTaP,Tdap,Td Vaccine (2 - Td or Tdap) [facility] Start: 12-30-2023 Mammography Mammogram Screening [facility] Start: 07-31-2023 Covid-19 Vaccine (2022- season) Covid-19 Vaccine ( season) [facility] Start: 07-31-2023 Influenza vaccination Influenza Vaccine (#1) [facility] Start: 11-30-2022 DEPRESSION ASSESSMENT DEPRESSION ASSESSMENT [facility] Start: 11-11-2022 Mammography MAMMOGRAM [facility] Start: 08-30-2022 End: 09-13-2022 Influenza virus A and B RNA and SARS-CoV-2 (COVID-19) N gene panel - Respiratory specimen by DAYRON with probe detection COVID WITH FLUA+B, ROUTINE Microbiology Routine Pneumonia of both lungs due to infectious organism, unspecified part of lung Expected: 08/30/2022, Expires: 09/13/2022 [facility] Work Phone: Immunizations Immunization Date Immunization Notes Care Provider Fa belia 09-17-2021 influenza virus vacc ine, unspecified formulation [facility] Work Phone: [facility] Payers Date Payer Category Payer Unknown [employer] PPO OOS [id number] 2012-Present [phone] [address] [place] [address] PPO [id number] 2012 Unknown [id number] Social History Date Type Detail Facility Start: [facility]20-[facility]22 [facility] History of tobacco use Cigarette Smoker [facility] Start: 08-20-2022 Tobacco use and exposure Smokeless tobacco non-user [facility] Start: 08-30-2022 Alcohol intake Current drinke r of alcohol (finding) [facility] Start: 01-26-2014 History SDOH Alcohol Comment Rarely [facility] Start: 08-20-2022 Tobacco Comment Pt states she is trying to quit- approx 1 pack per week [facility] Start: 1960 Sex Assigned At Not on file C [facility] Start: 08-20-2022 End: 08-30-2022 Exposure to SARS-CoV-2 (event) Not sure [facility] Work Phone: Start: 08-30-2022 End: 12-22-2022 History of Social function [facility] Start: 08-30-2022 End: 12-22-2022 Tobacco use panel [facility] National Score (1-100), lower number is lower risk 66 [facility] Clinical Notes 08-20-2022 to 12-30-2022 Telephone Encounter - Tamia Canchola MD - 12/24/2022 11:51 AM ESTTelephone Encounter - Senia Claudio RDMS - 12/22/2022 4:41 PM ESTTelephone Encounter - Carrie Whatley RN - 09/25/2022 8:41 AM EDT Note Date & Type Note Facility 12-30-2022 Note HNO ID: [id number] Author: RT Beti(R) Service: ? Author Type: Technologist Type: Progress Notes Filed: 12/30/2022 3:38 PM Note Text: Radiology Service Progress Note PATIENT NAME: Carly Urrutia DATE OF SERVICE: December 30, 2022 TIME: 3:20 PM PATIENT IDENTITY VERIFICATION COMPLETED USING TWO (2) IDENTIFIERS: Name and Date of confirmed by patient verbally. FALL SCREENING: Has the patient had 2 falls in the last year or 1 fall with injury or currently using an Ambulatory Assistive Device (Walker, Cane, Wheelchair, Crutches, etc.)? No PATIENT GENDER DATA: Female. status: : No status: NO. PATIENT RELEVANT IMPLANT DATA REVIEWED: Not Applicable RADIOLOGY DEPARTMENT: Mammography PERIPHERAL IV DATA: Not applicable SIGNED BY: RT Beti(R) December 30, 2022 3:20 PM [facility] [place] [facility] 12-24-2022 Miscellaneous Notes Breast US ordered May we please have Left Breast Ultrasound orders placed for pain. Thank you very much! Senia Claudio documented in this encounter [facility] 09-25-2022 Miscellaneous Notes Spoke to sebastian department. Mammogram was incorrectly scheduled. Given to PSS to call to reschedule. Carrie Whatley RN Patient is scheduled for diagnostic mammogram this afternoon but this is a screening day. Please clarify whether screening or diagnostic is wanted for this patient. Call mamms at [phone] and let us know. If diagnostic will need to be rescheduled. Thanks. documented in this encounter [facility] 08-31-2022 Miscellaneous Notes Phone call placed patient advised (see prior provider encounter) Patient verbalized understanding, agreed with plan of care. Tierra Diane LPN ----- Message from Susy Reynolds APRN.DAY CARE ASSISTANT sent at 08/31/2022 8:08 AM EDT ----- Please advise patient the COVID, flu test was negative. documented in this encounter [facility] 08-30-2022 Note HNO ID: [id number] Author: Hossein Morin PA-C Service: ? Author Type: Physician Online Media Director Type: Progress Notes Filed: 08/30/2022 12:00 PM Note Text: This note was created using YesVideo. Subjective Carly Urrutia is a 62 year old female. HPI Patient presents with a chief complaint of cough. On August 25 she was having an EGD done and states during the procedure she coughed and vomited a little bit. She states she was held in the recovery room for several hours as her oxygen was not recovering as fast as they would like. She had a chest x-ray that day which she states was normal. States over the past 3 to 4 days she is developed a cough, backache, low-grade fevers. She denies chest pain. States she feels short of breath off and on. She did a home COVID test which was negative. She is an occasional smoker. States it takes her several days to finish a pack. Denies asthma or COPD. Review of Systems Constitutional: Positive for fatigue and fever. HENT: Negative for congestion, ear pain and rhinorrhea. Respiratory: Positive for cough and shortness of breath. Negative for chest tightness. Cardiovascular: Negative. Gastrointestinal: Negative. Genitourinary: Negative. Musculoskeletal: Positive for back pain. All other systems reviewed and are negative. PAST MEDICAL HISTORY Diagnosis Date NEGATIVE MEDICAL HISTORY Current Outpatient Medications Medication Sig Dispense Refill pantoprazole DR (PROTONIX) 40 mg tablet Take 40 mg by mouth every morning. amoxicillin-clavulanic acid (AUGMENTIN) 875-125 mg per tablet Take 1 tablet by mouth twice daily for 10 days. 20 tablet 0 esomeprazole (NEXIUM) 40 mg capsule Take 40 mg by mouth once daily. (Patient not taking: Reported on 08/30/2022) No current facility-administered medications for this visit. PAST SURGICAL HISTORY Procedure Laterality Date BIOPSY BREAST OPEN INCISIONAL 2002 Bx of breast, incisional CRYO CAUTERY CERVIX in 20's LIG/TRNSXJ FLP TUBE ABDL/VAG APPR UNI/BI Tubal ligation FAMILY HISTORY Problem Relation Age of Onset Cancer Father Lung cancer age 60 Social History Tobacco Use Smoking status: Every Day Types: Cigarettes Smokeless tobacco: Never Tobacco comments: Pt states she is trying to quit- approx 1 pack per week Substance Use Topics Alcohol use: Yes Comment: Rarely Drug use: No Objective BP 110/74 Pulse 99 Temp 36.8 ?C (98.2 ?F) Resp 18 Wt 55 kg (121 lb 3.2 oz) LMP 04/07/2011 SpO2 97% BMI 22.17 kg/m? Physical Exam Vitals reviewed. Constitutional: Appearance: Normal appearance. HENT: Head: Normocephalic and atraumatic. Right Ear: Tympanic membrane, ear canal and external ear normal. Left Ear: Tympanic membrane, ear canal and external ear normal. Nose: Nose normal. Mouth/Throat: Mouth: Mucous membranes are moist. Pharynx: Oropharynx is clear. Cardiovascular: Rate and Rhythm: Normal rate and regular rhythm. Heart sounds: Normal heart sounds. Pulmonary: Effort: Pulmonary effort is normal. Breath sounds: Normal breath sounds. Musculoskeletal: Cervical back: Neck supple. Skin: General: Skin is warm and dry. Neurological: Mental Status: She is alert. Assessment and Plan ASSESSMENT/PLAN: 1. Pneumonia of both lungs due to infectious organism, unspecified part of lung - ICD9: 483.8, ICD10: J18.9 Strong suspicion for aspiration pneumonia, I will cover with Augmentin. Recommended close follow-up with her PCP. Red flags for ER care discussed. Patient agreeable with plan. - XR CHEST 2V FRONTAL/LAT - COVID WITH FLUA+B, ROUTINE Hossein R ROS Morin [facility] [place] [facility] 08-30-2022 Influenza virus A and B RNA and SARS-CoV-2 (COVID-19) N gene panel DAYRON+probe (Resp) COVID 19 RESULT: SARS-CoV-2 (Agent of COVID-19) Not Detected by RT-PCR or equivalent method. kevin [id number]_[employer] (SE[employer])_EUA This test was developed and its performance characteristics determined by [facility]'s [facility] [place]. This test has been authorized by FDA under an Emergency Use Authorization (EUA). This test has been validated in accordance with the FDA's Guidance Document Policy for Diagnostics Testing in Laboratories Certified to Perform High Complexity Testing under CLIA prior to Emergency use Authorization for Coronavirus Disease 2019 during the Public Health Emergency issued on January 28, 2020. Test performed by [facility], [facility] [place], [address], [place] [address]. INFLUENZA A PCR: Negative for Influenza A by RT-PCR INFLUENZA B PCR: Negative for Influenza B by RT-PCR [facility] [place] [facility] Diagnosis Breast pain, left- Primary Mastodynia [facility] Diagnosis Breast pain, left Mastodynia documented in this encounter [facility] for referral (narrative)* Diagnostic Procedure Only (Routine) - Authorized Specialty Diagnoses / Procedures Referred By Marlyn chandra Referred To Contact [facility] Diagnoses Breast pain, left Procedures US BREAST LTD LT US BREAST UNI REAL TIME WITH IMAGE LIMITED Tamia Canchola MD [address] [place] [address] [facility] [address] [place] [address] Referral ID Status Reason Start Date Expiration Date Visits Requested Visits Authorized [id number] Authorized Auto-Generat ed Referral 12/24/2022 01/23/2024 1 1 [facility] for referral (narrative)* Diagnostic Procedure Only (Routine) - Closed Specialty Diagnoses / Procedures Referred By Contpadmini chandra Referred To Contact [facility] Diagnoses Breast pain, left Procedures US BREAST LTD LT US BREAST UNI REAL TIME WITH IMAGE LIMITED Tamia Canchola MD [address] [place] [address] [facility] [address] [place] [address] Referral ID Status Reason Start Date Expiration Date V isits Requested Visits Authorized [id number] Closed Auto-Generate d Referral 12/24/2022 01/23/2024 1 [facility] Diagnostic Procedure Only (Routine) - Closed Specialty Diagnoses / Procedures Referred By Contac t Referred To Contact [facility] Diagnoses Breast pain, left Procedures US BREAST LTD LT US BREAST UNI REAL TIME WITH IMAGE LIMITED Tamia Canchola MD [address] [place] [address] [facility] [address] [place] [address] Referral ID Status Reason Start Date Expiration Date V isits Requested Visits Authorized [id number] Closed Auto-Generate d Referral 12/24/2022 01/23/2024 1 1 [facility] Health Concerns Infection Onset Date Last Indicated Resolved Time COVID-19 Rule-Out 08/30/2022 08/30/2022 Infection Onset Date Last Indicated Resolved Time COVID-19 Rule-Out 08/30/2022 08/30/2022 08/31/2022 12:14 AM EDT Summary Purpose Family History No Family History Records Found Advance Directives No Advanced Directives Records Found Additional Source Comments Source Comments (unrecognize d section and content) In the event this informatio n is protected by the Federal Confidentiality of Alcohol and Drug Abuse Patient Records regulations: The Federal rules restrict any use of the information to criminally investigate or prosecute any alcohol or drug abuse patient.[facility] the event this information is protected by the Federal Confidentiality of Alcohol and Drug Abuse Patient Records regulations: The Federal rules restrict any use of the information to criminally investigate or prosecute any alcohol or drug abuse patient.[facility] the event this information is protected by the Federal Confidentiality of Alcohol and Drug Abuse Patient Records regulations: The Federal rules restrict any use of the information to criminally investigate or prosecute any alcohol or drug abuse patient.[facility] the event this information is protected by the Federal Confidentiality of Alcohol and Drug Abuse Patient Records regulations: The Federal rules restrict any use of the information to criminally investigate or prosecute any alcohol or drug abuse patient.[facility] the event this information is protected by the Federal Confidentiality of Alcohol and Drug Abuse Patient Records regulations: The Federal rules restrict any use of the information to criminally investigate or prosecute any alcohol or drug abuse patient.[facility] Reason for Visit (unrecogniz ed section and content) Reason Comments Results Reason Comments Orders Reason Comments Orders Care Teams (unrecognized sec tion and content) Metalizing Supervisor Relationship Specialty Start Date End Date Bina Webb MD PCP - General Family Medicine 06/05/11 Metalizing Supervisor Relationship Specialty Start Date End Date Bina Webb MD PCP - General Family Medicine 06/05/11 Metalizing Supervisor Relationship Specialty Start Date End Date Bina Webb MD PCP - General Family [facility] 06/05/11 Metalizing Supervisor Relationship Specialty Start Date End Date Bina Webb MD PCP - General Family Medicine 06/05/11 INFORMATION SOURCE (unrecogn ized section and content) FOR RECORDS PERTAINING TO PATIENTS WHO ARE OR HAVE BEEN ENROLLED IN A CHEMICAL DEPENDENCY/SUBSTANCEABUSE PROGRAM, SOME INFORMATION MAY BE OMITTED. This clinical summary was aggregated from multiple sources. Caution should be exercised in using it in the provision of clinical care. This summary normalizes information from multiple sources, and as a consequence, information in this document may materially change the coding, format and clinical context of patient data. In addition, data may be omitted in some cases. CLINICAL DECISIONS SHOULD BE BASED ON THE PRIMARY CLINICAL RECORDS. [employer] [facility]. provides no warranty or guarantee of the accuracy or completeness of information in this document.
== END | disposition home or self-care (01) ==
LOC: CT 16:36
PROVIDERS: PCP Family Medicine; Referring Provider Family Medicine; Visit Provider Family Medicine
DX: Z12.2 Encounter for screening for malignant neoplasm of respiratory organs (principal); F17.200 Nicotine dependence, unspecified, uncomplicated
CPT/HCPCS: 71271

== ENCOUNTER 2024-02-20 10:56 | Emergency (ER) | payer BC, SELFPAY ==
[2024-02-20 10:57] VITALS: BP 128/80; PULSE 78; RESP 14; TEMP 36.2; O2SAT 100; BMI 24.1
[2024-02-20 11:15] VITALS: BP 112/69; PULSE 80; RESP 20; O2SAT 99
--- NOTE | 2024-02-20 11:16 | EKG12_ITS ---
Test Reason : SOB Blood Pressure : / mmHG Vent. Rate : 070 BPM Atrial Rate : 070 BPM P-R Int : 144 ms QRS Dur : 066 ms QT Int : 388 ms P-R-T Axes : 005 044 058 degrees QTc Int : 419 ms Normal sinus rhythm Normal ECG Confirmed by Tony Izaguirre ([id number]), science editor KASSIDY ALVARES ([id number]) on 02/23/2024 9:00:40 AM Referred By: MONSTER/GABRIELA Confirmed By:Tony Izaguirre
--- NOTE | 2024-02-20 11:18 | EX.ED.DYSGE1 ---
HPI <BRAVO Espinoza - Last Filed: 02/20/24 13:57> History of Present Illness Chief Complaint: Shortness of Breath Narrative Narrative: 63-year-old female with PMH of GERD/PUD states she woke up with cramping pain in her chest and between her shoulder blades. She also feels short of breath. She has periumbilical discomfort and nausea. She does report a history of GERD on a PPI. She has not eaten yet today and denies vomiting. She is having normal bladder and bowel movements and no melena or hematochezia. No fever or cough. She smokes 3 cigarettes a day. She denies cardiopulmonary history. No history of DVT/PE or risk factors. PFSH <BRAVO Espinoza - Last Filed: 02/20/24 13:57> PFSH Medical History Barretts esophagus FH: esophageal cancer Gastric ulcer Gastritis GERD (gastroesophageal reflux disease) History of echocardiogram History of stress test Smoker Wears glasses Home Medications esomeprazole magnesium 40 mg capsule,delayed release 40 mg PO DAILY #90 caps 07/20/23 [Rx Last Taken Unknown] ondansetron 4 mg disintegrating tablet 4 mg PO Q8H PRN nausea and vomiting 3 days #9 tabs 09/14/23 [Rx Last Taken Unknown] Allergy/AdvReac Type Severity Reaction Status Date / Time No Known Allergies Allergy Verified 02/20/24 10:58 Surgical History Hx of appendectomy Hx of tubal ligation Social History household members: none Smoking Status: Current every day smoker tobacco type: cigarettes substance use type: does not use ROS <BRAVO Espinoza - Last Filed: 02/20/24 13:57> ROS ED ROS Narrative Constitutional: Negative for fever, chills, malaise. CVS: Positive for chest pain. Negative for palpitations, syncope. Respiratory: Positive for shortness of breath. Negative for cough, orthopnea. GI: Positive for abdominal pain, nausea. Negative for vomiting, diarrhea, constipation, melena, hematochezia. : Negative for dysuria, hematuria or frequency. EXAM <BRAVO Espinoza - Last Filed: 02/20/24 13:57> Physical Exam Narrative Exam Narrative: CONST: Patient sitting in no acute distress. EYES: Normal inspection. NECK: Normal inspection. RESP: No respiratory distress, CTAB. CVS: Regular rate and rhythm, no murmur, no gallop. ABD: Soft and nontender, no guarding or rebound, nondistended, no hepatosplenomegaly. Back: Normal inspection, no tenderness. SKIN: Color normal, no rash, warm, dry, intact. EXTREMITIES: Normal appearance, no pedal edema. NEURO: Oriented x4. PSYCH: Normal affect. Const Vital Signs: 02/20/24 10:57 02/20/24 11:15 02/20/24 11:15 Temperature 97.2 F L Temperature Source Temporal Pulse Rate 78 80 Respiratory Rate 14 20 H Respiratory Effort Normal Non-Labored Respiratory Depth Normal Respiratory Pattern Normal Blood Pressure 128/80 H 112/69 Blood Pressure Mean 96 83 Pulse Ox 100 99 Oxygen Delivery Method Room Air Room Air Room Air 02/20/24 12:00 02/20/24 13:33 02/20/24 14:00 Temperature Temperature Source Pulse Rate 67 61 70 Respiratory Rate 17 14 14 Respiratory Effort Respiratory Depth Respiratory Pattern Blood Pressure 118/41 L 118/72 125/63 H Blood Pressure Mean 66 87 83 Pulse Ox 97 98 94 Oxygen Delivery Method Room Air Room Air Room Air 02/20/24 14:29 Temperature 97.2 F L Temperature Source Pulse Rate 70 Respiratory Rate 14 Respiratory Effort Respiratory Depth Respiratory Pattern Blood Pressure 125/63 H Blood Pressure Mean 83 Pulse Ox 95 Oxygen Delivery Method <Dr. Leon Duenas MD - Last Filed: 02/20/24 20:39> Physical Exam Const Vital Signs: 02/20/24 10:57 02/20/24 11:15 02/20/24 11:15 Temperature 97.2 F L Temperature Source Temporal Pulse Rate 78 80 Respiratory Rate 14 20 H Respiratory Effort Normal Non-Labored Respiratory Depth Normal Respiratory Pattern Normal Blood Pressure 128/80 H 112/69 Blood Pressure Mean 96 83 Pulse Ox 100 99 Oxygen Delivery Method Room Air Room Air Room Air 02/20/24 12:00 02/20/24 13:33 02/20/24 14:00 Temperature Temperature Source Pulse Rate 67 61 70 Respiratory Rate 17 14 14 Respiratory Effort Respiratory Depth Respiratory Pattern Blood Pressure 118/41 L 118/72 125/63 H Blood Pressure Mean 66 87 83 Pulse Ox 97 98 94 Oxygen Delivery Method Room Air Room Air Room Air 02/20/24 14:29 Temperature 97.2 F L Temperature Source Pulse Rate 70 Respiratory Rate 14 Respiratory Effort Respiratory Depth Respiratory Pattern Blood Pressure 125/63 H Blood Pressure Mean 83 Pulse Ox 95 Oxygen Delivery Method [facility] <BRAVO Espinoza - Last Filed: 02/20/24 13:57> [facility] Narrative Medical decision making narrative: Patient has multiple complaints including chest pain, back pain, shortness of breath, abdominal pain and nausea. She appears well and nontoxic. Vital signs stable. She has normal cardiopulmonary exam and abdomen is soft and nontender. Upper and lower extremity pulses are intact. CBC, CMP, and lipase are unremarkable. EKG is sinus rhythm with no ischemic changes and troponin x 2 negative. CXR shows no acute process. Patient declined Toradol or Zofran and states her symptoms are manageable with Tylenol at home. I discussed if they worsen she should return. She was discharged in stable condition. I have personally performed a face to face assessment of the patient and have reviewed the YOJANA Note. I performed a substantive portion of the visit including all aspects of the following. My lund findings include: History is remarkable for discomfort of chest scribes pressure radiating through to the scapular region. She did report shortness of breath. She denies history of PE or DVT. Denies leg pain, swelling discoloration. She presently smokes 3 to 4 cigarettes a day. 5 to 10 years ago she smoked more. She started smoking at early age. She denies intolerance to greasy or fried foods. Last evening she ate at [employer] and had potato with butter and salad with steak. She denies family history cholelithiasis. She denies renal or ureterolithiasis. Denies dysuria, frequency, urgency or hematuria. She denies any leg pain or swelling. Exam is unremarkable. Vital signs are unremarkable. Pressures slightly elevated. HEENT exam is unremarkable. Lungs are clear to auscultation. Breath sounds are symmetric. Heart is regular. Rate is normal. No murmur, gallop or rub. There is no reproducible chest pain. Abdomen is soft nontender. Negative clinical Ledezma sign. No palp pulsatile mass or abdominal bruit. Lower extremity exam is no swelling, discoloration, leg vein distention, palpable cords since on the distribution deep venous system. Medical Decision Making differential diagnosis would include reflux, biliary colic, cholelithiasis, cholecystitis, cardiac chest pain. Will obtain EKG cardiac markers and appropriate blood work including hepatic and lipase. Other additions or changes: [None] Lab Data Attestation: I reviewed the patient's lab results. Labs: Laboratory Results - last 24 hr 02/20/24 02/20/24 11:20 13:30 WBC 8.0 RBC 4.77 Hgb 14.9 Hct 45.0 MCV 94.3 MCH 31.2 MCHC 33.1 RDW Std Deviation 46.1 H RDW Coeff of Shanice 13.2 Plt Count 284 MPV 9.8 Immature Gran % (Auto) 0.400 Neut % (Auto) 77.2 H Lymph % (Auto) 16.5 L [place] % (Auto) 4.8 Eos % (Auto) 0.6 Baso % (Auto) 0.5 Absolute Neuts (auto) 6.2 Absolute Lymphs (auto) 1.32 Nucleated RBC % 0 Sodium 140 Potassium 3.6 Chloride 108 H Carbon Dioxide 26.0 Anion Gap 6 BUN 15 Creatinine 0.74 Estim Creat Clear Calc 61.06 Est GFR (MDRD) Af Amer 101 Est GFR (MDRD) Non-Af 84 BUN/Creatinine Ratio 20.2 H Glucose 90 Calcium 9.4 Total Bilirubin 1.00 AST 17 ALT 18 Alkaline Phosphatase 68 Troponin I High Sens 4 3 Total Protein 7.2 Albumin 3.6 Globulin 3.6 Albumin/Globulin Ratio 1.0 Lipase 24 Radiography Diagnostic Testing: Clinical Impression(s) from Imaging Studies Chest X-Ray 02/20/24 11:37 IMPRESSION: No radiographic evidence of acute cardiopulmonary disease. Electronically Signed: Amelia Razo MD at 12:26 EDT , ED attending interpretation of 2-view chest x-ray shows normal heart size, no acute infiltrate, edema, or effusion. EKG Initial EKG: Attestation: I personally reviewed and interpreted this EKG as follows: Interpretation: Sinus Rhythm and No Acute Injury Pattern <Dr. Leon Duenas MD - Last Filed: 02/20/24 20:39> MDM MDM Narrative Medical decision making narrative: I have personally performed a face to face assessment of the patient and have reviewed the YOJANA Note. I performed a substantive portion of the visit including all aspects of the following. My lund findings include: History is remarkable for discomfort of chest scribes pressure radiating through to the scapular region. She did report shortness of breath. She denies history of PE or DVT. Denies leg pain, swelling discoloration. She presently smokes 3 to 4 cigarettes a day. 5 to 10 years ago she smoked more. She started smoking at early age. She denies intolerance to greasy or fried foods. Last evening she ate at [employer] and had potato with butter and salad with steak. She denies family history cholelithiasis. She denies renal or ureterolithiasis. Denies dysuria, frequency, urgency or hematuria. She denies any leg pain or swelling. Exam is unremarkable. Vital signs are unremarkable. Pressures slightly elevated. HEENT exam is unremarkable. Lungs are clear to auscultation. Breath sounds are symmetric. Heart is regular. Rate is normal. No murmur, gallop or rub. There is no reproducible chest pain. Abdomen is soft nontender. Negative clinical Ledezma sign. No palp pulsatile mass or abdominal bruit. Lower extremity exam is no swelling, discoloration, leg vein distention, palpable cords since on the distribution deep venous system. Medical Decision Making differential diagnosis would include reflux, biliary colic, cholelithiasis, cholecystitis, cardiac chest pain. Will obtain EKG cardiac markers and appropriate blood work including hepatic and lipase. Other additions or changes: [None] Lab Data Labs: Laboratory Results - last 24 hr 02/20/24 02/20/24 11:20 13:30 WBC 8.0 RBC 4.77 Hgb 14.9 Hct 45.0 MCV 94.3 MCH 31.2 MCHC 33.1 RDW Std Deviation 46.1 H RDW Coeff of Shanice 13.2 Plt Count 284 MPV 9.8 Immature Gran % (Auto) 0.400 Neut % (Auto) 77.2 H Lymph % (Auto) 16.5 L [place] % (Auto) 4.8 Eos % (Auto) 0.6 Baso % (Auto) 0.5 Absolute Neuts (auto) 6.2 Absolute Lymphs (auto) 1.32 Nucleated RBC % 0 Sodium 140 Potassium 3.6 Chloride 108 H Carbon Dioxide 26.0 Anion Gap 6 BUN 15 Creatinine 0.74 Estim Creat Clear Calc 61.06 Est GFR (MDRD) Af Amer 101 Est GFR (MDRD) Non-Af 84 BUN/Creatinine Ratio 20.2 H Glucose 90 Calcium 9.4 Total Bilirubin 1.00 AST 17 ALT 18 Alkaline Phosphatase 68 Troponin I High Sens 4 3 Total Protein 7.2 Albumin 3.6 Globulin 3.6 Albumin/Globulin Ratio 1.0 Lipase 24 Radiography Chest X-Ray - ED: 2 View and Read by ED Physician (Independent reviewed and interpreted by wa as negative for any acute process. The slight hyperaeration. Cardiac silhouette size normal. Lung parenchyma reveals chronic changes. There is no effusion or infiltrate. Hilum is normal. Periosteal structures are normal. 1157) Diagnostic Testing: Clinical Impression(s) from Imaging Studies Chest X-Ray 02/20/24 11:37 IMPRESSION: No radiographic evidence of acute cardiopulmonary disease. Electronically Signed: Amelia Razo MD at 12:26 EDT , Discharge Plan Triage Chief Complaint: Shortness of Breath ED Midlevel Provider: Julianne Tolentino ED Provider: Leon Duenas Dx/Rx/DC Orders Clinical Impression: Atypical chest pain, Abdominal pain Instructions: ED Chest Pain, Uncertain Cause Prescriptions: No Action ondansetron 4 mg tablet,disintegrating 4 mg PO Q8H PRN (Reason: nausea and vomiting) 3 Days Qty: 9 0RF esomeprazole magnesium 40 mg capsule,delayed release(DR/EC) 40 mg PO DAILY Qty: 90 2RF Primary Care Provider: Henry Webb Referrals: Henry Webb MD [Primary Care Provider] - Activity Restrictions/Additional Instructions: Take Tylenol or Motrin as needed for pain, return if symptoms worsen Disposition Disposition: Home, Self Care Discharge Date/Time: 02/20/24 14:31
[2024-02-20 11:32] LABS: Absolute Lymphocyte Count 1.32 X10^3/uL (0.83-4.51); Absolute Neutrophil Count 6.2 X10^3/uL (2.0-7.7); Basophil# 0.04 X10^3/uL; Basophil% 0.5 % (0-1); Eosinophil# 0.05 X10^3/uL; Eosinophils% 0.6 % (0-5); Hemoglobin 14.9 g/dL (12.0-15.0); Lymphocyte # 1.32 X10^3/ul (0.83-4.51); Lymphocyte % 16.5 % (19-41); Mean Corp Hgb Conc 33.1 g/dL (32-36); Mean Corpuscular Hgb 31.2 pg (27.0-32.0); Mean Corpuscular Volume 94.3 fL (81-99); Mean Platelet Vol. 9.8 fl (6.2-12.0); Monocyte# 0.38 X10^3/uL; Monocyte% 4.8 % (0-10); NRBC Flagged by Analyzer 0 % (0-5); Neutrophil # 6.18 X10^3/uL (2.7-7.7); Neutrophil % 77.2 % (47-70); Platelet Count 284 K/mm3 (150-450); RBC Distribution Width CV 13.2 % (11.6-14.6); RBC Distribution Width SD 46.1 fl (35.1-43.9); Red Blood Count 4.77 M/mm3 (4.2-5.4)
--- NOTE | 2024-02-20 11:37 | RAD_ITS ---
INDICATION: chest pain EXAMINATION/TECHNIQUE: X-RAY - XR Chest 2 Views COMPARISON: September 14, 2023 FINDINGS: LINES/DEVICES: None. LUNGS: No consolidation, edema or effusion. No pneumothorax. MEDIASTINUM AND CARDIOVASCULAR STRUCTURES: Cardiac silhouette not enlarged. Central airways and mediastinal contour are unremarkable. BONES AND SOFT TISSUES: Unremarkable. RAD/Chest PA and Lateral IMPRESSION: No radiographic evidence of acute cardiopulmonary disease. Electronically Signed: Amelia Razo MD at 12:26 EDT ,
[2024-02-20 11:47] LABS: AST(SGOT) 17 U/L (15-37); Alanine Aminotransfer ALT/SGPT 18 U/L (13-56); Albumin, Serum 3.6 g/dL (3.2-5.0); Alkaline Phosphatase 68 U/L (45-117); Anion Gap 6 (5-15); BUN 15 mg/dL (7-18); BUN/Creat Ratio 20.2 RATIO (10-20); Calcium,Total 9.4 mg/dL (8.5-10.1); Chloride 108 mmol/L (98-107); Creatinine, Serum 0.74 mg/dL (0.55-1.02); EST Glomerular Filtration Rate 84 mL/min (>60); Est Glom Filt Rate - Afr Amer 101 mL/min (>60); Estimated Creatinine Clearance 61.06 ml/min; Globulin 3.6 g/dL (2.2-4.2); Glucose 90 mg/dL (74-106); Lipase 24 U/L (13-75); Potassium 3.6 mmol/L (3.5-5.1); Protein, Total 7.2 g/dL (6.4-8.2); Sodium Level 140 mmol/L (136-145); Troponin-I HS 4 pg/mL (3.0-54.0)
[2024-02-20 12:00] VITALS: BP 118/41; PULSE 67; RESP 17; O2SAT 97
[2024-02-20 13:33] VITALS: BP 118/72; PULSE 61; RESP 14; O2SAT 98
[2024-02-20 13:52] LABS: Troponin-I HS 3 pg/mL (3.0-54.0)
[2024-02-20 14:00] VITALS: BP 125/63; PULSE 70; RESP 14; O2SAT 94
[2024-02-20 14:29] VITALS: BP 125/63; PULSE 70; RESP 14; TEMP 36.2; O2SAT 95
== END 2024-02-20 14:31 | disposition home or self-care (01) ==
PROVIDERS: Physician Assistant; Emergency Provider Emergency Medicine; PCP Family Medicine; Visit Provider Emergency Medicine
DX: R07.89 Other chest pain (principal); R10.9 Unspecified abdominal pain; R06.02 Shortness of breath; F17.210 Nicotine dependence, cigarettes, uncomplicated
CPT/HCPCS: 71046; 80053; 83690; 84484; 85025; 93005; 99284; J2405

== ENCOUNTER 2024-03-07 07:56 | Day surgery (SDC) | payer BC, SELFPAY ==
--- NOTE | 2024-03-07 | ESO_PTH ---
PATIENT: SAMUEL URRUTIA LOC: EN U#:[id number] AGE/SX: 63/F ROOM: RE03/07/[address]: Dr. Darci Wade DO : 1960 BED: DIS: 03/07/2024 SPEC #: [id number] RECD: 03/07/24 12:59 STATUS: ROXANE BLESSING #: [id number] REJI: 03/07/24 00:[address]: Darci Wade DEPT: SURGICAL PATHOLOGY RECD BY: Cristhian Mendoza ENTERED: 03/07/24 12:59 SP TYPE: MAT STEVENS DR: Dr. Henry Webb MD Tissues: Esophagus, NOS Procedures: Special Stain Group II Surgery Specimen Level IV Alcian Blue/PAS (control) HEADER OPERATION: EGD biopsy PRE-OP DIAGNOSIS: Juarez's esophagus, GERD TISSUE SUBMITTED: Distal esophagus MICROSCOPIC DIAGNOSIS Distal esophagus, biopsy: Fragments of gastroesophageal mucosa with chronic inflammation. Intestinal metaplasia (goblet cell metaplasia) is not identified. See comment. / 03/08/24 COMMENT Alcian blue/PAS stain with matched control is used in the evaluation of the specimen. MICROSCOPIC DESCRIPTION Slides are reviewed. GROSS DESCRIPTION Received in fixative is one container labeled with the patient's name and designated Distal esophagus. The specimen consists of multiple irregular fragments of light nicholson soft tissue that in aggregate measure 1.0 x 0.3 x 0.1 cm. The specimen is totally submitted in one cassette. /mr 03/07/24 TC:3 CPT:11548,80882
[2024-03-07] MEDS: Lactated Ringers 1,000 ML 15 ML IV (08:43)
[2024-03-07 08:44] VITALS: BP 103/66; PULSE 64; RESP 16; TEMP 36.6; O2SAT 100; BMI 23.6
[2024-03-07] MEDS: Sodium Citrate/Citric Acid 30 ML UDC PO (08:54)
--- NOTE | 2024-03-07 09:25 | PCM.HP.BLA ---
History and Physical Date of Admission: 03/07/24 SAMUEL URRUTIA, is a 63 F who presents to the office today for *BGI established 01.27.22 with belching and reflux symptoms for the last several months; recently started apple cider vinegar and feels this has been helpful. FH includes esophageal cancer (unk) and unknown esophageal issues (sister). Appendectomy 02.23.2020 for acute appendicitis. Anxiety also pertinent requiring ED visits. ? EGD 02.04.22 LA Grade B esophagitis; Schatzki ring, Savary 51F; medium hiatal hernia; one cratered gastric ulcer. Juarez?s esophagus OV 02.18.22 has been reducing cigarette use to one cigarette per day. Finish sucralfate, continue PPI indefinitely. OV 04.24.22 Repeat EGD for Juarez?s surveillance. Continue PPI. OV 08.08.22 continues with small amounts of cigarette use. Declines colonoscopy for screening; has never had one. ? EGD 08.25.22 LA Grade A esophagitis; medium hiatal hernia; medium trichobezoar and retained fluid. No specimens. ? CT abd IV 08.11.23 (PCP) splenic calcified granulomas; hepatic cyst. ? MCRP 09.18.23 ordered but not performed ROS Const Constitutional: No fatigue ENT ENT: No difficulty swallowing Gastro GI: Positive for excessive flatus; No difficulty swallowing Musc Musculoskeletal: Positive for joint pain and back pain Skin Skin: No yellowing of the eye or itchy eyes Psych Psychiatric: Positive for anxiety Endo Endocrine: No fatigue Aller/Imm Allergy/Immunologic: No itchy eyes Stas/Lymp Hematologic/Lymphatic: No easy bleeding or easy bruising Exam Const General: cooperative, healthy appearing and comfortable Nutritional Appearance: average body habitus Orientation: alert, awake and oriented x3 Quality Reporting Tobacco Screening ([facility] 138) Smoking Status: Current every day smoker Assessment and Plan Assessment and Plan (1) Barretts esophagus: Status: Chronic Plan: We reviewed her EGD findings Continue as omeprazole 40 mg daily Follow-up 1 year, will be due for repeat EGD in 1 to 2 years to follow-up Juarez's (2) GERD (gastroesophageal reflux disease): Status: Chronic Plan: I have examined the patient and the H&P has been reviewed. There are no clinical changes since date of exam.
[2024-03-07 09:46] VITALS: BP 103/66; BP 86/48; PULSE 73; RESP 14; TEMP 36.4; O2SAT 94
[2024-03-07 09:50] VITALS: BP 103/66; BP 85/50; PULSE 67; RESP 16; O2SAT 93
--- NOTE | 2024-03-07 09:51 | OP.EGD_ITS ---
Patient Name: Carly Carvalho Procedure Date: 03/07/2024 9:28 AM Date of : 1960 Age: 63 Procedure: Upper GI endoscopy Indications: Follow-up of Juarez's esophagus Providers: Darci Wade DO Medicines: Monitored Anesthesia Care Patient Profile: This is a 63 year old female. Refer to note in patient chart for documentation of history and physical. Patient has symptoms of chronic heartburn. Complications: No immediate complications. Procedure: Pre-Anesthesia Assessment: - Prior to the procedure, a History and Physical was performed, and patient medications and allergies were reviewed. The risks and benefits of the procedure and the sedation options and risks were discussed with the patient. All questions were answered and informed consent was obtained. Patient identification and proposed procedure were verified by the physician in the pre-procedure area. Mental Status Examination: alert and oriented. Airway Examination: normal oropharyngeal airway and neck mobility. Respiratory Examination: clear to auscultation. CV Examination: normal. Prophylactic Antibiotics: The patient does not require prophylactic antibiotics. Prior Anticoagulants: The patient has taken no anticoagulant or antiplatelet agents. ASA Grade Assessment: III - A patient with severe systemic disease. After reviewing the risks and benefits, the patient was deemed in satisfactory condition to undergo the procedure. The anesthesia plan was to use monitored anesthesia care (MAC). Immediately prior to administration of medications, the patient was re-assessed for adequacy to receive sedatives. The heart rate, respiratory rate, oxygen saturations, blood pressure, adequacy of pulmonary ventilation, and response to care were monitored throughout the procedure. The physical status of the patient was re-assessed after the procedure. After obtaining informed consent, the endoscope was passed under direct vision. Throughout the procedure, the patient's blood pressure, pulse, and oxygen saturations were monitored continuously. The gastroscope was introduced through the mouth, and advanced to the second part of duodenum. The upper GI endoscopy was accomplished without difficulty. The patient tolerated the procedure well. Scope In: 9:37:52 AM Scope Out: 9:41:09 AM Total Procedure Duration Time 0 hours 3 minutes 17 seconds Findings: There were esophageal mucosal changes secondary to established Juarez's disease present in the lower third of the esophagus. The maximum longitudinal extent of these mucosal changes was 2 cm in length. Mucosa was biopsied with a cold forceps for histology in a targeted manner at intervals of 1 cm in the lower third of the esophagus. One specimen bottle was sent to pathology. Verification of patient identification for the specimen was done. Estimated blood loss was minimal. A hiatal hernia was present. No other significant abnormalities were identified in a careful examination of the stomach. The first portion of the duodenum was normal. 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 Biopsied. - Hiatal hernia. - Normal first portion of the duodenum. Recommendation: - Discharge patient to home. - Resume previous diet. - Continue present medications. - Await pathology results. - Repeat upper endoscopy in 1 year for surveillance. Procedure Code(s): --- Professional --- 19686, Esophagogastroduodenoscopy, flexible, transoral; with biopsy, single or multiple CPT copyright 2021 [employer]. All rights reserved. The codes documented in this report are preliminary and upon coin rolling machine operator review may be revised to meet current compliance requirements. Darci Wade DO 03/07/2024 9:51:24 AM This report has been signed electronically. Number of Addenda: 0 Note Initiated On: 03/07/2024 9:28 AM
--- NOTE | 2024-03-07 09:52 | OP.CCLET_ITS ---
03/07/2024 Henry Webb [address] [place] [address] Re : Upper GI endoscopy procedure for Carly Carvalho Dear Dr. Webb This procedure was performed on Thursday, March 07, 2024. 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 Biopsied. - Hiatal hernia. - Normal first portion of the duodenum. Recommendations : - Discharge patient to home. - Resume previous diet. - Continue present medications. - Await pathology results. - Repeat upper endoscopy in 1 year for surveillance. My findings are described in the full procedure note, which is enclosed. If I can be of further assistance, please feel free to contact me at . Sincerely, Darci Wade, 03/07/2024 9:51:24 AM This report has been signed electronically.
[2024-03-07 09:55] VITALS: BP 103/66; BP 90/56; PULSE 75; RESP 16; O2SAT 96
[2024-03-07 09:59] VITALS: BP 103/66; BP 90/56; PULSE 77; RESP 16; TEMP 36.4; O2SAT 95
[2024-03-07 10:14] VITALS: BP 103/66
== END 2024-03-07 10:21 | disposition home or self-care (01) ==
LOC: EN 08:00 → AC 08:01
PROVIDERS: PCP Family Medicine; Referring Provider Family Medicine; Visit Provider Internal Medicine Gastroenterology
PROC: 0DJ08ZZ Inspection of Upper Intestinal Tract, Via Natural or Artificial Opening Endoscopic (ICD-10-PCS; CPT 43235; principal; 2024-03-07 09:10)
DX: K22.70 Barrett's esophagus without dysplasia (principal); K44.9 Diaphragmatic hernia without obstruction or gangrene; K21.9 Gastro-esophageal reflux disease without esophagitis; F17.200 Nicotine dependence, unspecified, uncomplicated
CPT/HCPCS: 43239; 88305; 88313; J7120; J2405

== ENCOUNTER → 2024-06-14 | Outpatient (CLI) | payer BC, SELFPAY ==
[2024-06-14 17:58] LABS: Vitamin B12 232 pg/mL (211-911)
[2024-06-14 18:42] LABS: ALB/GLOB Ratio 0.9 RATIO (0.9-2.4); AST(SGOT) 13 U/L (15-37); Alanine Aminotransfer ALT/SGPT 15 U/L (13-56); Albumin, Serum 3.3 g/dL (3.2-5.0); Alkaline Phosphatase 76 U/L (45-117); Anion Gap 3 (5-15); BUN 17 mg/dL (7-18); BUN/Creat Ratio 21.4 RATIO (10-20); Calcium,Total 8.8 mg/dL (8.5-10.1); Chloride 109 mmol/L (98-107); EST Glomerular Filtration Rate 77 mL/min (>60); Est Glom Filt Rate - Afr Amer 93 mL/min (>60); Globulin 3.7 g/dL (2.2-4.2); Glucose 82 mg/dL (74-106); Magnesium 2.3 mg/dL (1.6-2.6); Potassium 3.8 mmol/L (3.5-5.1); Sodium Level 141 mmol/L (136-145); Thyroid Stim Hormone (TSH) 1.53 uIU/mL (0.358-3.74)
== END | disposition home or self-care (01) ==
LOC: MTLAB 15:53
PROVIDERS: PCP Family Medicine; Referring Provider Family Medicine; Visit Provider Family Medicine
DX: R20.2 Paresthesia of skin (principal)
CPT/HCPCS: 36415; 80053; 82607; 82746; 83735; 84443

== ENCOUNTER 2025-05-11 09:25 | Day surgery (SDC) | payer BC, MEDICARE, SELFPAY ==
[2025-05-11] VITALS (8 sets, daily range): BP systolic 86–107; BP diastolic 47–67; PULSE 61–76; RESP 16–18; TEMP 36.6–37.3; O2SAT 93–100; BMI 23.5
--- NOTE | 2025-05-11 09:29 | PCM.PRE.AN2 ---
ASA Classification* ASA Classification ASA Classification: 2 Assessment & Plan Anesthesia* Anesthesia Assessment Anesthesia Assessment: Discussed sedation and/or anesthesia options, risks, benefits, and alternatives with patient/parents/legal guardian/POA. Questions invited. The patient/parents/legal guardian/POA seems to understand and agrees to proceed with anesthesia plan. Reviewed the physical assessment, medical history, allergy history and patient home medications list prior to surgery/procedure/anesthetic and documented any changes. Performed airway and anesthesia risk assessments. Anesthesia Type Anesthesia Type: MAC Anesthesia Focused Assessment* Airway Assessment Mouth opens: >3 cm Mallampati Score: II Labs Anesthesia Preop lab: CBC WBC 8.0 K/mm3 (4.4-11.0) 02/20/24 11:20 02/20/24 RBC 4.77 M/mm3 (4.2-5.4) 02/20/24 11:20 02/20/24 Hgb 14.9 g/dL (12.0-15.0) 02/20/24 11:20 02/20/24 Hct 45.0 % (37-47) 02/20/24 11:20 02/20/24 Plt Count 284 K/mm3 (150-450) 02/20/24 11:20 02/20/24 CHEMISTRY Potassium 3.8 mmol/L (3.5-5.1) 06/14/24 15:54 06/14/24 Sodium 141 mmol/L (136-145) 06/14/24 15:54 06/14/24 Magnesium 2.3 mg/dL (1.6-2.6) 06/14/24 15:54 06/14/24 BUN 17 mg/dL (7-18) 06/14/24 15:54 06/14/24 Creatinine 0.80 mg/dL (0.55-1.02) 06/14/24 15:54 06/14/24 Glucose 82 mg/dL (74-106) 06/14/24 15:54 06/14/24 POC Glucose 89 mg/dL (70-110) 08/26/12 20:13 08/26/12 TSH 1.53 uIU/mL (0.358-3.74) 06/14/24 15:54 06/14/24 COAG PT 12.0 SECONDS (11.9-14.4) 08/26/12 20:15 08/26/12 Pre-Assessment Diagnosis/Proposed Procedure Planned Operative Procedure(s): EGD Anesthesia History 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 When Was Last Pacemaker Check QUESTION #4 FULL TEXT: You/Your Family Experience fever (hyperthermia) with Anesthesia Last Oral Intake Last Oral intake: Last Oral Intake NPO since Meds taken in AM with sips of water? Meds patient instructed to take am of surgery PONV PONV - decontamination technician: PONV - decontamination technician Female Yes 05/08/25 15:51 HX of Motion Sickness No 05/08/25 15:51 HX of N/V After Surgery No 05/08/25 15:51 Non-Smoker Yes 05/08/25 15:51 Duration of Surgery greater No 05/08/25 15:51 than 60 minutes Number of Risk Factors 2 05/08/25 15:51 PONV Score Moderate Risk 05/08/25 15:51 Height & Weight Height & Weight: Anesthesia: Height & Weight Height 5 ft 03/07/24 08:44 Respiratory Assessment Respiratory Assessment - decontamination technician: Respiratory Tract Infection Hx - decontamination technician Hx Respiratory Tract Infection No 05/08/25 15:51 STOP Sleep Apnea STOP Sleep Apnea - decontamination technician: STOP Sleep Apnea - decontamination technician Hx Hypertension No 05/08/25 15:51 Hx Sleep Apnea No 05/08/25 15:51 CPAP BIPAP Do you snore loudly (louder No 05/08/25 15:51 than talking or can be heard Do you often feel tired/ No 05/08/25 15:51 fatigued/ sleepy during daytime? Has anyone observed you stop No 05/08/25 15:51 breathing during sleep? STOP Results Negative 05/08/25 15:51 QUESTION #5 FULL TEXT : Do you snore loudly (louder than talking or can be heard through closed doors)? Tobacco Use History Tobacco Use History - decontamination technician: Tobacco Use History - decontamination technician Tobacco Use Cigarettes 02/24/20 07:35 Smoking Status Former smoker 05/08/25 15:51 Hx Tobacco Use Yes 05/08/25 15:51 Years Smoking 25 05/08/25 15:51 Packs Smoked per Day 1 05/08/25 15:51 Smoking Cessation Date was Yes - quit smoking within 15 05/08/25 15:51 within the last 15 years years Hx Smoking Cessation Date Hx Smoking Cessation No 05/08/25 15:51 Counseling Hematologic Medial History Hematologic Hx - decontamination technician: Hematologic Medical Hx - utilization management um nurse Hx of Blood Transfusion No 05/08/25 15:51 Hx of Transfusion in last 3 No 05/08/25 15:51 Months Date of Last Transfusion (if within last 3 months) Ever experience any problems No 05/08/25 15:51 with transfusion(s)? Specify any problems Hx of Preganancy in last 3 No 05/08/25 15:51 Months Nurse Filling Out Transfusion JZOLLINGE 05/08/25 15:51 & Questions: Date: 05/08/25 05/08/25 15:51 Time: 15:53 05/08/25 15:51 Patient unable to answer at this time (ie. confused, unrespo /Reproduction History /Reproductive History - decontamination technician: /Reproductive Hx- decontamination technician Hx Now No 05/08/25 15:51 Gestational Age (in weeks): EDC: Hx Hx Para Hx Section SAB No 05/08/25 15:51 PFSH Medical History Post-menopausal Anxiety Wears glasses History of echocardiogram History of stress test FH: esophageal cancer Gastric ulcer Gastritis Barretts esophagus Smoker GERD (gastroesophageal reflux disease) Home Medications ?Medication ?Instructions ?Recorded ?Last Taken ?Type esomeprazole magnesium 40 mg 40 mg PO DAILY #90 caps 04/27/25 Unknown Rx capsule,delayed release Allergy/AdvReac Type Severity Reaction Status Date / Time No Known Allergies Allergy Verified 05/08/25 15:45 Surgical History History of esophagogastroduodenoscopy (EGD) Hx of tubal ligation Hx of appendectomy Social History household members: none Smoking Status: Former smoker substance use type: does not use Review of Systems (Anesthesia) ROS Narrative System reviewed and no additional complaints, except as documented.
[2025-05-11] MEDS: Lactated Ringers 1,000 ML 15 ML IV (10:03)
--- NOTE | 2025-05-11 10:30 | EGD_PTH ---
PATIENT: SAMUEL URRUTIA LOC: EN U#:[id number] AGE/SX: 64/F ROOM: RE05/11/[address]: Dr. Darci Wade DO : 1960 BED: DIS: 05/11/2025 SPEC #: [id number] RECD: 05/11/25 12:53 STATUS: ROXANE BLESSING #: [id number] REJI: 05/11/25 10:[address]: Darci Wade DEPT: SURGICAL PATHOLOGY RECD BY: Nick Wolf ENTERED: 05/11/25 14:39 SP TYPE: EGD BIOPSY HILDA DR: Dr. Henry Webb MD Tissues: A - Esophagus, NOS Procedures: Surgery Specimen Level IV HEADER OPERATION: EGD and biopsy PRE-OP DIAGNOSIS: Juarez's esophagus TISSUE SUBMITTED: A- Distal esophagus biopsy MICROSCOPIC DIAGNOSIS A. Esophagus, distal, biopsy: Columnar mucosa, negative for goblet cell metaplasia. Squamous mucosa with reactive changes. MICROSCOPIC DESCRIPTION Slides are reviewed. GROSS DESCRIPTION A. Received in formalin labeled with the patient's name and date of . Designated as Distal esophagus BX are 3 nicholson tissue fragments, 0.5 cm to 0.7 cm. Entirely submitted in 1 cassette. [facility] [place]/11/2025 CPT:60605
--- NOTE | 2025-05-11 10:46 | PCM.HP.STD ---
HPI - General General Date of Admission: 05/11/25 Date of Service: 05/11/25 Chief Complaint: navas's esophagus HPI Narrative SAMUEL URRUTIA, is a 64 F who presentsBGI established 01.27.22 with belching and reflux symptoms for the last several months; recently started apple cider vinegar and feels this has been helpful. FH includes esophageal cancer (unk) and unknown esophageal issues (sister). Appendectomy 02.23.2020 for acute appendicitis. Anxiety also pertinent requiring ED visits. ? EGD 02.04.22 LA Grade B esophagitis; Schatzki ring, Savary 51F; medium hiatal hernia; one cratered gastric ulcer. Navas?s esophagus OV 02.18.22 has been reducing cigarette use to one cigarette per day. Finish sucralfate, continue PPI indefinitely. OV 04.24.22 Repeat EGD for Navas?s surveillance. Continue PPI. OV 08.08.22 continues with small amounts of cigarette use. Declines colonoscopy for screening; has never had one. ? EGD 08.25.22 LA Grade A esophagitis; medium hiatal hernia; medium trichobezoar and retained fluid. No specimens. ? CT abd IV 08.11.23 (PCP) splenic calcified granulomas; hepatic cyst. ? MCRP 09.18.23 ordered but not performed OV 05.26.24 pt reports that she is feeling well overall and has no GI symptoms of concern at this time. continues with esomeprazole. [facility] Medical History Post-menopausal Anxiety Wears glasses History of echocardiogram History of stress test FH: esophageal cancer Gastric ulcer Gastritis Barretts esophagus Smoker GERD (gastroesophageal reflux disease) Home Medications ?Medication ?Instructions ?Recorded ?Last Taken ?Type esomeprazole magnesium 40 mg 40 mg PO DAILY #90 caps 04/27/25 05/11/25 Rx capsule,delayed release Allergy/AdvReac Type Severity Reaction Status Date / Time No Known Allergies Allergy Verified 05/11/25 09:47 Surgical History History of esophagogastroduodenoscopy (EGD) Hx of tubal ligation Hx of appendectomy Social History household members: none Smoking Status: Former smoker substance use type: does not use ROS Constitutional Constitutional: Denies fatigue, fever(s), poor appetite, weight gain or weight loss Gastrointestinal Gastrointestinal: Denies belching, bloating, change in bowel habits, change in stool character, chewing difficulty, coffee ground emesis, constipation, cramping, diarrhea, dyspepsia, dysphagia, early satiety, excessive flatus, fecal incontinence, heartburn, hematemesis, hematochezia, hemorrhoids, loose stools, melena, nausea, odynophagia, rectal bleeding, tenesmus, vomiting or weight changes Vital Signs Vital Signs Vital Signs: 05/11/25 09:51 05/11/25 09:51 Temperature 99.1 F Temperature Source Temporal Pulse Rate 61 Respiratory Rate 18 Respiratory Pattern Normal Blood Pressure 107/67 Blood Pressure Mean 80 Blood Pressure Source Monitor Blood Pressure Position Semi-Fowlers Blood Pressure Location Left Arm Pulse Ox 100 Oxygen Delivery Method Room Air Weight Weight: 124 lb 8.979 oz Body Mass Index (BMI) 23.5 Physical Exam Const alert, oriented x3, no apparent distress and healthy appearing General Appearance: cooperative GI normal to inspection, nondistended, normoactive bowel sounds, soft to palpation, non-tender and non-distended Percussion: normal to percussion Rectal Exam: deferred Assessment & Plan Assessment/Plan (1) Barretts esophagus: (2) Gastritis: PLAN: Assessment and Plan Assessment and Plan (1) Barretts esophagus: Status: Chronic Plan: We reviewed her EGD findings Continue as omeprazole 40 mg daily Follow-up 1 year, will be due for repeat EGD in 1 to 2 years to follow-up Navas's (2) GERD (gastroesophageal reflux disease): Status: Chronic Comment: CONTROLLED WITH MED Plan: See above
--- NOTE | 2025-05-11 11:21 | PCM.POST.ANE ---
Anesthesia: Postop Eval I Current Vital Signs Temperature: 97.8 F Pulse Rate: 76 Blood Pressure: 90/49 Respiratory Rate: 16 Pulse Ox: 96 Oxygen Delivery Method: Room Air Assessment Airway patent: Yes Spontaneous unlabored respirations: Yes Mental status: Awake and Calm nausea: No Vomiting: No Anesthesia Complication: No Fluid Hydration Crystalloid volume administer (ml): 300 Total IV fluid infused: 300 Progress Note Anesthesia document: Postop Eval 1 completed: Yes
--- NOTE | 2025-05-11 11:24 | OP.EGD_ITS ---
Patient Name: Carly Carvalho Procedure Date: 05/11/2025 10:53 AM Date of : 1960 Age: 64 Procedure: Upper GI endoscopy Indications: Heartburn, Follow-up of Juarez's esophagus Providers: Darci Wade DO Referring MD: Henry Webb Medicines: Monitored Anesthesia Care Patient Profile: This is a 64 year old female. Refer to note in patient chart for documentation of history and physical. Patient has symptoms of acute heartburn. Complications: No immediate complications. Procedure: Pre-Anesthesia Assessment: - Prior to the procedure, a History and Physical was performed, and patient medications and allergies were reviewed. The patient is competent. The risks and benefits of the procedure and the sedation options and risks were discussed with the patient. All questions were answered and informed consent was obtained. Patient identification and proposed procedure were verified by the physician in the pre-procedure area. Mental Status Examination: alert and oriented. Airway Examination: normal oropharyngeal airway and neck mobility. Respiratory Examination: clear to auscultation. CV Examination: normal. Prophylactic Antibiotics: The patient does not require prophylactic antibiotics. Prior Anticoagulants: The patient has taken no anticoagulant or antiplatelet agents except for NSAID medication. ASA Grade Assessment: II - A patient with mild systemic disease. After reviewing the risks and benefits, the patient was deemed in satisfactory condition to undergo the procedure. The anesthesia plan was to use monitored anesthesia care (MAC). Immediately prior to administration of medications, the patient was re-assessed for adequacy to receive sedatives. The heart rate, respiratory rate, oxygen saturations, blood pressure, adequacy of pulmonary ventilation, and response to care were monitored throughout the procedure. The physical status of the patient was re-assessed after the procedure. After obtaining informed consent, the endoscope was passed under direct vision. Throughout the procedure, the patient's blood pressure, pulse, and oxygen saturations were monitored continuously. The Endoscope was introduced through the mouth, and advanced to the second part of duodenum. The upper GI endoscopy was accomplished without difficulty. The patient tolerated the procedure well. Scope In: 11:07:58 AM Scope Out: 11:10:36 AM Total Procedure Duration Time 0 hours 2 minutes 38 seconds Findings: The Z-line was irregular and was found 35 cm from the incisors. Biopsies were taken with a cold forceps for histology. Verification of patient identification for the specimen was done. Estimated blood loss was minimal. The entire examined stomach was normal. No gross lesions were noted in the entire examined duodenum. Impression: - Z-line irregular, 35 cm from the incisors. Biopsied. - Normal stomach. - No gross lesions in the entire examined duodenum. Recommendation: - Discharge patient to home. - Resume previous diet. - Continue present medications. - Await pathology results. - Repeat upper endoscopy for surveillance. Procedure Code(s): --- Professional --- 25739, Esophagogastroduodenoscopy, flexible, transoral; with biopsy, single or multiple CPT copyright 2021 [employer]. All rights reserved. The codes documented in this report are preliminary and upon plastic straightening roll operator review may be revised to meet current compliance requirements. Darci Wade DO 05/11/2025 11:23:46 AM This report has been signed electronically. Number of Addenda: 0 Note Initiated On: 05/11/2025 10:53 AM
--- NOTE | 2025-05-11 11:24 | OP.CCLET_ITS ---
05/11/2025 Henry Webb [address] [place] [address] Re : Upper GI endoscopy procedure for Carly Carvalho Dear Dr. Webb This procedure was performed on April. My impressions and recommendations are as follows: Impressions : - Z-line irregular, 35 cm from the incisors. Biopsied. - Normal stomach. - No gross lesions in the entire examined duodenum. Recommendations : - Discharge patient to home. - Resume previous diet. - Continue present medications. - Await pathology results. - Repeat upper endoscopy for surveillance. My findings are described in the full procedure note, which is enclosed. If I can be of further assistance, please feel free to contact me at . Sincerely, Darci Wade, 05/11/2025 11:23:46 AM This report has been signed electronically.
--- NOTE | 2025-05-11 11:48 | PCM.POSTANE2 ---
Anesthesia Postop Eval I Sum Postop Eval Completion status Anesthesia document: Postop Eval 1 completed: Yes Anesthesia Postop Eval I Summary Anesthesia Postop Eval I Summary: Anesthesia Postop Eval I: Assessment Summary Airway patent Yes 05/11/25 11:22 [email or web address] Spontaneous unlabored Yes 05/11/25 11:22 [email or web address] respirations Mental status Awake,Calm 05/11/25 11:22 [email or web address] nausea No 05/11/25 11:22 [email or web address] Vomiting No 05/11/25 11:22 [email or web address] Anesthesia Postop Eval I: Fluid Summary Crystalloid volume administer 300 05/11/25 11:22 [email or web address] (ml) Colloids volume administered ( ml) Blood Product volume administered (ml) Total IV fluid infused 300 05/11/25 11:22 [email or web address] Anesthesia Postop Eval I: Summary Notes Anesthesia Complication No 05/11/25 11:22 [email or web address] Anesthesia Complication Comment: Post-operative progress note Anesthesia: Postop Eval II Evaluation Mental status: Awake Pain Level: 0 nausea: No Vomiting: No
== END 2025-05-11 12:11 | disposition home or self-care (01) ==
LOC: EN 09:26 → AC 09:27
PROVIDERS: PCP Family Medicine; Referring Provider Family Medicine; Visit Provider Internal Medicine Gastroenterology
PROC: 0DJ08ZZ Inspection of Upper Intestinal Tract, Via Natural or Artificial Opening Endoscopic (ICD-10-PCS; CPT 43235; principal; 2025-05-11 10:25)
DX: K22.70 Barrett's esophagus without dysplasia (principal); Z87.891 Personal history of nicotine dependence; Z90.49 Acquired absence of other specified parts of digestive tract; K21.9 Gastro-esophageal reflux disease without esophagitis; Z79.899 Other long term (current) drug therapy
CPT/HCPCS: 43239; 88305; J2405